=== PATIENT | female | born 1995 | race Caucasian/White ===

== ENCOUNTER 2020-05-24 14:03 | Emergency (ER) | payer OTHER ==
[~2020-05-24] VITALS: Ht 157.5 cm; Wt 94.3 kg
--- OUTSIDE RECORDS SUMMARY | ~2020-05-24 | XMS | Encounter Summary ---
Demographics + + + | Address | [address] | | | [place] [address] | + + + | Home Phone | | + + + | Preferred Language | Unknown | + + + | Marital Status | Single | + + + | Jewish Affiliation | LUT | + + + | Race | White | + + + | Ethnic Group | Not or | + + + Author + + + | Author | [facility] | + + + | Organization | [facility] | + + + | Address | Unknown | + + + | Phone | Unavailable | + + + Support + + + + + | Name | Relationship | Address | Phone | + + + + + | Cherry Headley | ECON | [address] | | | | | [place] | | | | | [address] | | + + + + + Care Team Providers + +------+ + | Care Area Director Name | Role | Phone | + +------+ + | Cornelius Jerry MD | PCP | | + +------+ + Reason for Visit + + + | Reason | Comments | + + + | Strabismus | | + + + Encounter Details +--------+---------+ + + + | Date | Type | Department | Care Team | Description | +--------+---------+ + + + | 10/02/ | Office | [facility] | [facility] | Hypertropia; | | 2010 | Visit | [facility] | [address] [facility] | Esotropia, | | | | at [facility] | [address] | unspecified | | | | [address] | [place] [address] | | | | | [facility] [place] [facility], | | | | | | 5th floor | | | | | | [place] [address] | | | | | | [phone] | | | +--------+---------+ + + + Social History + +-------+ +--------+------+ | Tobacco Use | Types | Packs/Day | Years | Date | | | | | Used | | + +-------+ +--------+------+ | Never Smoker | | | | | + +-------+ +--------+------+ + +---+---+---+ | Smokeless Tobacco: | | | | | Never Used | | | | + +---+---+---+ + + +---------+ + | Alcohol Use | Drinks/Week | oz/Week | Comments | + + +---------+ + | No | | | | + + +---------+ + + + + | Sex Assigned at | Date Recorded | | | | + + + | Not on file | | + + + + + + + | Job Start Date | Occupation | Industry | + + + + | Not on file | Not on file | Not on file | + + + + + + + + | Travel History | Travel Start | Travel End | + + + + + + | No recent travel history available. | + + documented as of this encounter Progress Vonda Schulz - 10/08/2011 3:18 PM PST Sensorimotor Examination: Petty Headley is a 16 year old female here for 1 day post op visit. Complains of vertical diplopia, worse in downgaze. No pain or nausea. Past Surgical History Procedure Date Strabismus surgery 10/01/2011 LMRs 4mm, DEE myotomy, RMRs 4mm on adjM Impression: 1. I day s/p BMR rec. With DEE myectomy with small to moderate overcorrection of the vertic al misalignment. 2. Stable acuity Plan: 1. Care directed by Dr. Karr. VONDA GAY CO COMT documented in this enc ounter Plan of Treatment Not on filedocumented as of this encounter Visit Diagnoses + + | Diagnosis | + + | Hypertropia | + + | Esotropia, unspecified | + + documented in this encounter"
--- OUTSIDE RECORDS SUMMARY | ~2020-05-24 | XMS | Encounter Summary ---
Demographics + + + | Address | [address] | | | [place] [address] | + + + | Home Phone | | + + + | Preferred Language | Unknown | + + + | Marital Status | Single | + + + | Synagogue Affiliation | LUT | + + + | Race | White | + + + | Ethnic Group | Not or | + + + Author + + + | Author | [facility] | + + + | Organization | [facility] | + + + | Address | Unknown | + + + | Phone | Unavailable | + + + Support + + + + + | Name | Relationship | Address | Phone | + + + + + | Cherry Headley | ECON | [address] | | | | | [place] | | | | | [address] | | + + + + + Care Team Providers + +------+ + | Care Fabric Worker Name | Role | Phone | + +------+ + | Cornelius Jerry MD | PCP | | + +------+ + Reason for Visit + + + | Reason | Comments | + + + | Strabismus Surgery | surgical documentation 10/01/2011 | + + + Encounter Details +--------+ + + + + | Date | Type | Department | Care Team | Description | +--------+ + + + + | 10/02/ | Documentati | [facility] | Pancho Rodgers MD | Strabismus Surgery | | 2010 | on | [facility] [address] | [address] | (surgical | | | | [address] [facility] | [address] | documentation | | | | [place], [address]th | [place], [place] | 10/01/2011) | | | | floor [place], [place] | [address] | | | | | [address] | [phone] | | | | | | | | +--------+ + + + + Social History + +-------+ [...] + + documented as of this encounter Plan of Treatment Not on filedocumented as of this encounter Visit Diagnoses Not on filedocumented in this encounter"
--- OUTSIDE RECORDS SUMMARY | ~2020-05-24 | XMS | Encounter Summary ---
Demographics + + + | Address | [address] | | | [place] [address] | + + + | Home Phone | | + + + | Preferred Language | Unknown | + + + | Marital Status | Single | + + + | Episcopal Affiliation | LUT | + + + | Race | White | + + + | Ethnic Group | Not or | + + + Author + + + | Author | [facility] | + + + | Organization | [facility] | + + + | Address | Unknown | + + + | Phone | Unavailable | + + + Support + + + + + | Name | Relationship | Address | Phone | + + + + + | Cherry Headley | ECON | [address] | | | | | [place] | | | | | [address] | | + + + + + Care Team Providers + +------+ + | Care Shaker Out Name | Role | Phone | + +------+ + | Cornelius Jerry MD | PCP | | + +------+ + Reason for Visit +---------+ + | Reason | Comments | +---------+ + | Post Op | 1 month post strab sx | +---------+ + Encounter Details +--------+---------+ + + + | Date | Type | Department | Care Team | Description | +--------+---------+ + + + | 11/10/ | Office | [facility] | Pancho Thakur MD | Hypertropia (Primary | | 2010 | Visit | [facility] [address] | [address] | Dx) | | | | [address] [facility] | [address] | | | | | [place], [facility] | [place], [place] | | | | | floor [place], [place] | [address] | | | | | [address] | [phone] | | | | | | | | +--------+---------+ + + + [...] documented as of this encounter Progress Notes Pancho Thakur MD - 11/10/2011 8:56 AM PST OPHTHALMOLOGY FOLLOW UP EXAMINATION: INTERVAL HISTORY: Petty Headley is a 16 y.o. female from [place] accompanied by Sami- speaking mother. Presents with 1 month post strab sx LMRs 4mm, DEE myotomy, RMRs 4mm on adj. Vision and alignment good per mother and patient. Petty c/o constant pain in OD of 4/10.Sh e notes there is a foreign body feeling when she blinks the right eye. No pain medication be ing taken. 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 EXAMINATION: Mental Status: Alert, age-appropriate behavior Current Correction: Type: Sphere Cylinder [place] Add Prism Right Eye Left Eye Comments: Stereo: Fly +, Animals 3/3, Circles 9/9 Visual acuity: Distance fixation: Method: Snellen - Linear Without Correction With Correction Pinhole cc Pinhole sc Isolated Right Eye 20/15 Left Eye 20/15 -2 Both Eyes VA Comments: [place]:Full both eyes Please see below in the assessment and plan for interpretation of the chief recordist sensorimot or exam. Pupils: No APD Right eye: round reactive to light PERRL Left eye: round reactive to light PERRL Patient dilated at with . IAZUL, performed, reviewed or revised the above interval history only, medications , allergies, as well as performed elements noted in the Base Ophthalmology Exam, such as vis ual acuity, pupils, EOMs and IOP and this was reviewed and modified by the attending physici an. Assessment 1. Excellent alignment 2. Adjustable suture tail is close to the limbus. No concerns , Has usual amount of inflam matory/healing change Plan 1. Offered to trim the suture. She felt it was not bothering her that much and preferred t o go with artificial tears as needed. 2. Recheck in one month I have reviewed and edited history and technical documentation and Scribe input, and perfor med all elements to above examination documentation PANCHO THAKUR MD documented in this en counter Plan of Treatment Not on filedocumented as of this encounter Visit Diagnoses + + | Diagnosis | + + | Hypertropia - Primary | + + documented in this encounter"
--- OUTSIDE RECORDS SUMMARY | ~2020-05-24 | XMS | Encounter Summary ---
Demographics + + + | Address | [address] | | | [place] [address] | + + + | Home Phone | | + + + | Preferred Language | Unknown | + + + | Marital Status | Single | + + + | Latter Day Affiliation | LUT | + + + | Race | White | + + + | Ethnic Group | Not or | + + + Author + + + | Author | [facility] | + + + | Organization | [facility] | + + + | Address | Unknown | + + + | Phone | Unavailable | + + + Support + + + + + | Name | Relationship | Address | Phone | + + + + + | Cherry eHadley | ECON | [address] | | | | | [place] | | | | | [address] | | + + + + + Care Team Providers + +------+ + | Care Shipping And Receiving Specialist Name | Role | Phone | + [...] Description | +--------+---------+ + + + | 11// | Office | [facility] | Vonda Gay | Alternating | | 2010 | Visit | [facility] | [address] | exotropia with V | | | | at [facility] | [address] | pattern; Inferior | | | | [address] | [place] [address] | oblique overaction | | | | [facility], | | | | | | 5th floor | | | | | | [place] [address] | | | | | | [phone] | | | +--------+---------+ + + + Social History + +-------+ +--------+------+ | Tobacco Use | Types | Packs/Day | Years | Date | | | | | Used | | + +-------+ +--------+------+ | Never Smoker | | | | | + +-------+ +--------+------+ + + +---------+ + | Alcohol Use | Drinks/Week | oz/Week | Comments | + + +---------+ + | Not Asked | | | | + + +---------+ [...] this encounter Progress Notes Vonda Gay - 10/03/2011 9:38 AM PST Sensorimotor Examination: INTERVAL HISTORY: Petty Headley is a 16 y.o. female from [place] accompanied by Bermudian- speaking mother. Here for surgical plan. No new complaints. Vision is fine. Does not wear gl asses. Strabismus surgery is scheduled for tomorrow. Last Appt: 01/31 Last DFE/CR: 01/31 No past medical history on file. Patient Active Problem List Diagnoses Exotropia, unspecified Hypertropia Hyperopia Alternating exotropia Past Surgical History Procedure Date Strabismus surgery 2000 both eyes to correct exotropia Meds Reviewed: Yes Allergies Reviewed: Yes Problem List Reviewed: Yes EXAMINATION: Mental Status: Alert, age-appropriate behavior Stereo: Fly +, Animals 01/23, Circles 08/01 Visual acuity: Distance fixation: Method: Snellen - Linear Without Correction With Correction Pinhole cc Pinhole sc Isolated Right Eye 20/15 Left Eye 20/20 Both Eyes VA Comments: Impression: 1. V-pattern exotropia 2. Nearly equal vision Plan: 1. Proceed with strabismus surgery as planned tomorrow with Dr. Karr. VONDA GAY CO COMT documented in this enc ounter Plan of Treatment Not on filedocumented as of this encounter Visit Diagnoses + + | Diagnosis | + + | Alternating exotropia with V pattern | + + | Inferior oblique overaction Esotropia, unspecified | + + documented in this encounter"
--- OUTSIDE RECORDS SUMMARY | ~2020-05-24 | XMS | Encounter Summary ---
Demographics + + + | Address | [address] | | | [place] [address] | + + + | Home Phone | | + + + | Preferred Language | Unknown | + + + | Marital Status | Single | + + + | Alevism Affiliation | LUT | + + + | Race | White | + + + | Ethnic Group | Not or | + + + Author + + + | Author | [facility] | + + + | Organization | [facility] | + + + | Address | Unknown | + + + | Phone | Unavailable | + + + Support + + + + + | Name | Relationship | Address | Phone | + + + + + | Cherry Headley | ECON | [address] | | | | | [place] | | | | | [address] | | + + + + + Care Team Providers + +------+ + | Care Barrel Lapper Name | Role | Phone | + +------+ + | Cornelius Jerry MD | PCP | | + +------+ + Reason for Visit + + + | Reason | Comments | + + + | Strabismus Surgery | need to dawson surgery with Dr. Rodgers | + + + Encounter Details +--------+ + + + + | Date | Type | Department | Care Team | Description | +--------+ + + + + | 06/12/ | Documentati | [facility] | Pancho Rodgers MD | Strabismus Surgery | | 2010 | on | Eye Clinic [address] | [address] | (need to dawson surgery | | | | [address] [facility] | [address] | with Dr. Rodgers ) | | | | [place], [facility] | [place], [place] | | | | | [place], [place] | [address] | | | | | [address] | [phone] | | | | | | | | +--------+ + + + + Social History + +-------+ +--------+------+ | Tobacco Use | Types | Packs/Day | Years | Date | | | | | Used | | + +-------+ +--------+------+ | Never Assessed | | | | | + +-------+ +--------+------+ + + + | Sex Assigned at [...]
--- OUTSIDE RECORDS SUMMARY | ~2020-05-24 | XMS | Encounter Summary ---
Demographics + + + | Address | [address] | | | [place] [address] | + + + | Home Phone | | + + + | Preferred Language | Unknown | + + + | Marital Status | Single | + + + | Jainism Affiliation | LUT | + + + | Race | White | + + + | Ethnic Group | Not or | + + + Author + + + | Author | [facility] | + + + | Organization | [facility] | + + + | Address | Unknown | + + + | Phone | Unavailable | + + + Support + + + + + | Name | Relationship | Address | Phone | + + + + + | Cherry Headley | ECON | [address] | | | | | [place] | | | | | [address] | | + + + + + Care Team Providers + +------+ + | Care Nursing Professor Name | Role | Phone | + [...] Hypertropia; | | 2010 | Visit | [facility] | [address] [facility] | Esotropia, | | | | at [facility] | [address] | unspecified | | | | [address] | [place] [address] | | | | | [facility], | | | | | | 5th floor | | | | | | [place] [address] | | | | | | [phone] | | | +--------+---------+ + + + [...]
--- OUTSIDE RECORDS SUMMARY | ~2020-05-24 | XMS | Clinical Summary ---
Demographics + + + | Address | [address] | | | [place] [address] | + + + | Home Phone | | + + + | Preferred Language | Unknown | + + + | Marital Status | Single | + + + | Restorationism Affiliation | LUT | + + + | Race | White | + + + | Ethnic Group | Not or | + + + Author + + + | Author | [facility] | + + + | Organization | [facility] | + + + | Address | Unknown | + + + | Phone | Unavailable | + + + Support + + + + + | Name | Relationship | Address | Phone | + + + + + | Jackelyn Cash | ECON | [address] | | | | | [place] | | | | | [address] | | + + + + + Care Team Providers + +------+ + | Care Gauge And Weigh Machine Adjuster Name | Role | Phone | + +------+ + | Cornelius Jerry MD | PCP | | + +------+ + Source Comments SHAE is fully live on both [facility] and [facility]Patient.[facility] Allergies No Known Allergies Medications No known medications Active Problems + + + | Problem | Noted Date | + + + | Esotropia | 10/08/2011 | + + + + + | Overview: ICD10 | + + + + + | Alternating exotropia with V pattern | 10/03/2011 | + + + | Inferior oblique overaction | 10/03/2011 | + + + | Exotropia | 01/24/2011 | + + + + + | Overview: ICD10 | + + + + + | Hypertropia | 01/24/2011 | + + + | Hyperopia | 01/24/2011 | + + + | Alternating exotropia | 01/24/2011 | + + + Social History + +-------+ [...] recent travel history available. | + + Last Filed Vital Signs + + + + + | Vital Sign | Reading | Time Taken | Comments | + + + + + | Blood Pressure | 105/63 | 10/01/2011 3:38 PM | | | | | PST | | + + + + + | Pulse | 92 | 10/01/2011 4:00 PM | | | | | PST | | + + + + + | Temperature | 36.6 C (97.9 F) | 10/01/2011 3:38 PM | | | | | PST | | + + + + + | Respiratory Rate | 20 | 10/01/2011 4:00 PM | | | | | PST | | + + + + + | Oxygen Saturation | 100% | 10/01/2011 4:00 PM | | | | | PST | | + + + + + | Inhaled Oxygen | - | - | | | Concentration | | | | + + + + + | Weight | 65.3 kg (144 lb) | 10/01/2011 11:19 AM | | | | | PST | | + + + + + | Height | 160 cm (5' 3") | 10/01/2011 11:19 AM | | | | | PST | | + + + + + | Body Mass Index | 25.51 | 10/01/2011 11:19 AM | | | | | PST | | + + + + + Plan of Treatment + + + + + | Health Maintenance | Due Date | Last Done | Comments | + + + + + | Influenza (Flu) | | | | | vaccination (#1) | 9 | | | + + + + + | Pneumococcal | Aged Out | | No longer eligible | | vaccination | | | based on patient's | | | | | age to complete this | | | | | topic | + + + + + Results Not on filefrom Last 3 Months Insurance + +--------+ +--------+ + +------+ | Payer | Benefi | Subscriber | Effect | Phone | Address | Type | | | t Plan | ID | dana | | | | | | / | | Dates | | | | | | Group | | | | | | + +--------+ +--------+ + +------+ | [employer] | MODA | xxxxxxxxx | | [phone] | [address] | PPO | | | [employer] | | [address] | [phone] | | | | [place] | | esent | | [place], | | | | [place] | | | | [place] [address] | | + +--------+ +--------+ + +------+ + +--------+ +--------+ + + | Guarantor Name | Accoun | Relation to | Date | Phone | Billing Address | | | t Type | Patient | of | | | | | | | | | | + +--------+ +--------+ + + | JACKELYN CASH | Person | Parent | [birth year] | [address] | | | al/Fam | | 1971 | [phone] | [place] | | | [place] | | | [address] (Home) | [address] | + +--------+ +--------+ + +
--- OUTSIDE RECORDS SUMMARY | ~2020-05-24 | XMS | Clinical Summary ---
Demographics + + + | Address | [address] | | | [place] [address] | + + + | Home Phone | | + + + | Preferred Language | Unknown | + + + | Marital Status | Single | + + + | Latter-Day Affiliation | LUT | + + + | Race | White | + + + | Ethnic Group | Not or | + + + Author + + + | Author | [facility] | + + + | Organization | [facility] | + + + | Address | Unknown | + + + | Phone | Unavailable | + + + Support + + + + + | Name | Relationship | Address | Phone | + + + + + | Jackelyn Cash | ECON | [address] | | | | | [place] | | | | | [address] | | + + + + + Care Team Providers + +------+ + | Care Production Hardener Name | Role | Phone | + +------+ + | Cornelius Jerry MD | PCP | | + +------+ + Source Comments SHAE is fully live on both [facility] and [facility] InPatient.[facility] Allergies No Known Allergies Medications No known [...] OE[employer] | MODA | xxxxxxxxx | | [phone] | [address] | PPO | | | [place] | | [address] | [phone] | | | | [place] | | esent | | [place], | | | | [place] | | | | [place] [address] | | + +--------+ +--------+ + +------+ [...] [place] | | | [address] (Home) | [address] | + +--------+ +--------+ + +
--- OUTSIDE RECORDS SUMMARY | ~2020-05-24 | XMS | Encounter Summary ---
Demographics + + + | Address | [address] | | | [place] [address] | + + + | Home Phone | | + + + | Preferred Language | Unknown | + + + | Marital Status | Single | + + + | Zoroastrian Affiliation | LUT | + + + | Race | White | + + + | Ethnic Group | Not or | + + + Author + + + | Author | [facility] | + + + | Organization | [facility] | + + + | Address | Unknown | + + + | Phone | Unavailable | + + + Support + + + + + | Name | Relationship | Address | Phone | + + + + + | Cherry Headley | ECON | [address] | | | | | [place] | | | | | [address] | | + + + + + Care Team Providers + +------+ + | Care Residential Roofer Helper Name | Role | Phone | + +------+ + | Cornelius Jerry MD | PCP | | + +------+ + Reason for Visit + + + | Reason | Comments | + + + | Follow-up visit | post op | + + + | Strabismus | | + + + Encounter Details +--------+---------+ + + + | Date | Type | Department | Care Team | Description | +--------+---------+ + + + | 01/05/ | Office | [facility] | GottliebMarlenDeedee | Convergence | | 2011 | Visit | [facility] | | insufficiency or | | | | at [facility] | | palsy in binocular | | | | [address] | | eye movement; | | | | [facility], | | Alternating | | | | 5th floor | | exotropia with V | | | | [place] [address] | | pattern; Diplopia | | | | [phone] | | | +--------+---------+ + + + [...] this encounter Progress Notes Deedee Gottlieb - 01/05/2012 12:30 PM PSTFormatting of this note might be different from the o valenciainal. SENSORY MOTOR EXAM: Reason For Visit: Follow-up visit - intermittent exotropia INTERVAL HISTORY: Petty Headley is a 16 y.o. female from [place] accompanied by Lithuanian- speaking mother. Patient is 3 months post surgery for intermittent exotropia. 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 Esotropia, unspecified Past Surgical History Procedure Date Strabismus surgery 2000 both eyes to correct exotropia Strabismus surgery 10/01/2011 LMRs 4mm, DEE myotomy, RMRs 4mm on adjM Meds Reviewed: Yes Allergies Reviewed: Yes Problem List Reviewed: Yes EXAMINATION: Mental Status: Alert, age-appropriate behavior No glasses Stereo: Fly +, Animals 3/3, Circles 9/9 Visual acuity: Distance fixation: Method: Snellen linear Without Correction With Correction Pinhole cc Pinhole sc Isolated Right Eye 20/20 Left Eye 20/20 Both Eyes VA Comments: Near: at 14 inches Method: Narrable near card Without Correction With Correction Right Eye J1 Left Eye J1 Both Eyes States she is having no problem reading and passed the [place] state assessment test Motility Exam: Adaptive abnormal head posture: some chin down and turn to left Distance Alignment: sc 10-12 X-Xt 4 E 5 X 3 RH 7 ET 4 RHT 6 E-ET 1 RH Near: sc Primary: 6 X' Downgaze: NPC: OS diverges at 12 cm poorly maintained. Head Tilt Test: Rt: 0 3 RH Lt: ortho Ocular Ductions and Versions: V pattern RE LE 0 0 0 0 0 0 0 0 0 0 0 0 0 0 0 0 Pupils: No APD Right eye: round reactive to light PERRL Left eye: round reactive to light PERRL Intraocular Pressure: Method: Right eye: Left eye: Assessment 1. Convergence insufficiency still persists although control is pretty good at distance and near 2. Result of surgery will be compromised with extra school work unless she practises at [facility] 3. Some diplopia in left and down gaze intermittently due to incomitance. Plan 1. Suggested computer orthoptics if she does not want to do the push ups as directed 2. Mom will consider this. Care directed by Dr Rodgers. Vinayak Cain. 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
--- OUTSIDE RECORDS SUMMARY | ~2020-05-24 | XMS | Encounter Summary ---
Demographics + + + | Address | [address] | | | [place] [address] | + + + | Home Phone | | + + + | Preferred Language | Unknown | + + + | Marital Status | Single | + + + | Yarsani Affiliation | LUT | + + + [...] [place] | | | | | [address] | | + + + + + Care Team Providers + +------+ + | Care Shift Lab Technician Name | Role | Phone | [...] Convergence | | 2011 | Visit | [facility] | | insufficiency or | | | | at [facility] | | palsy in binocular | | | | [address] | | eye movement; | | | | [facility], | | Alternating | | | | 5th floor | | exotropia with V | | | | [place] [address] | | pattern; Diplopia | | | | [phone] | | | +--------+---------+ + + + [...] Headley is a 16 y.o. female from [place] accompanied by Sami- speaking mother. Patient is 3 months post [...] VA Comments: Near: at 14 inches Method: Oxxy near card Without Correction With Correction Right Eye J1 Left Eye J1 Both Eyes States she is having no problem reading and passed the [place] state assessment test Motility Exam: Adaptive abnormal [...] extra school work unless she practises at [facility] 3. Some diplopia in left and [...]
--- OUTSIDE RECORDS SUMMARY | ~2020-05-24 | XMS | Encounter Summary ---
Demographics + + + | Address | [address] | | | [place] [address] | + + + | Home Phone | | + + + | Preferred Language | Unknown | + + + | Marital Status | Single | + + + | Jew Affiliation | LUT | + + + | Race | White | + + + | Ethnic Group | Not or | + + + Author + + + | Author | [facility] | + + + | Organization | [facility] | + + + | Address | Unknown | + + + | Phone | Unavailable | + + + Support + + + + + | Name | Relationship | Address | Phone | + + + + + | Cherry Headley | ECON | [address] | | | | | [place] | | | | | [address] | | + + + + + Care Team Providers + +------+ + | Care Wet End Supervisor Name | Role | Phone | + [...] + + | 11// | Office | [facility] | Vonda Gay | Alternating | | 2010 | Visit | [facility] | [address] | exotropia with V | | | | at [facility] | [address] | pattern; Inferior | | | | [address] | [place] [address] | oblique overaction | | | | [facility], | | | | | | 5th floor | | | | | | [place] [address] | | | | | | [phone] | | | +--------+---------+ + + + [...] Headley is a 16 y.o. female from [place] accompanied by Belgian- speaking mother. Here for surgical plan. No [...]
--- OUTSIDE RECORDS SUMMARY | ~2020-05-24 | XMS | Encounter Summary ---
Demographics + + + | Address | [address] | | | [place] [address] | + + + | Home Phone | | + + + | Preferred Language | Unknown | + + + | Marital Status | Single | + + + | Buddhist Affiliation | LUT | + + + | Race | White | + + + | Ethnic Group | Not or | + + + Author + + + | Author | [facility] | + + + | Organization | [facility] | + + + | Address | Unknown | + + + | Phone | Unavailable | + + + Support + + + + + | Name | Relationship | Address | Phone | + + + + + | Cherry Headley | ECON | [address] | | | | | [place] | | | | | [address] | | + + + + + Care Team Providers + +------+ + | Care Regasification Plant Operator Name | Role | Phone | + [...] Description | +--------+---------+ + + + | 03/03/ | Office | [facility] | Deedee Gottlieb | Alternating | | 2010 | Visit | [facility] | | exotropia with V | | | | at [facility] | | pattern; Hypertropia | | | | [address] | | | | | | [facility] [facility], | | | | | | 5th floor | | | | | | [place] [address] | | | | | | [phone] | | | +--------+---------+ + + + [...] this encounter Progress Notes Deedee Gottlieb - 01/24/2011 10:19 AM PSTFormatting of this note might be different from the o jose. COMPREHENSIVE OPHTHALMOLOGY EXAM: HISTORY OF PRESENT PROBLEM: Petty Headley is a 15 y.o. female from [place] accompanied b y mother. Here for exotropia consult. History of surgery aged 6 years at [facility] for exotropia. Started weari ng prism glasses about the aged of 8 years. Had patching and some exercises. Per mother we ars glasses very little recently Deviation has gradually increased with time and she wants to know if she can have further s urgery. . PAIN: pain PAST OCULAR HISTORY: strabismus surgery aged 6 PAST MEDICAL HISTORY: none FAMILY HISTORY OF EYE DISEASE: grandfather with XT EXAMINATION: Mental Status: Alert, age-appropriate behavior Current Correction: Sphere Cylinder [place] Add Prism Right Eye +0.50 +0.25 017 4 in 1.5 dn Left Eye +0.25 +0.25 165 4 in 1.5 up Comments: Stereo: Fly +, Animals 2/3, Circles 2/9 Visual acuity: Distance fixation: Method: Snellen linear Without Correction With Correction Pinhole cc Pinhole sc Isolated Right Eye 20/30 -1 20/30 20 Left Eye 20/30 20/30 Both Eyes VA Comments: Near: at 14 inches Method: Blink Logic near card Without Correction With Correction Right Eye J3 Left Eye J3 Both Eyes Confrontation Woods:Full both eyes Motility Exam: Adaptive abnormal head posture: none Distance Alignment: sd short room 28 XT 3 RHT Builds to 15 XT 7 RHT Builds to 18 XT 8 RHT 16 XT 10 RHT 12 XT 6 RHT Near: sd cc Primary: To 10 XT' 2 RHT' Downgaze: NPC: Not binocular in fact very poor. Diverges at 22 cms. Accommodation: BEO: 14 cms RE/LE: 8-10 cms Tried + 1.00 DS did not like. Head Tilt Test: Rt: 16 XT 10 RHT Lt: 12-14 XT 5 RHT Ocular Ductions and Versions: Splay in elevation RE LE 0 0 0 0 0 0 0 - 0 0 0 0 0 0 0 0 Post op diplopia test: No diplopia noted with deviation corrected, over corrected or under corrected Assessment 1. Residual alternating exotropia and right hypertropia 2. Hyperopia Desires further surgery Care directed by Dr Rodgers. Vinayak Cain. documented in this encounter Plan of Treatment Not on filedocumented as of this encounter Visit Diagnoses + + | Diagnosis | + + | Alternating exotropia with V pattern | + + | Hypertropia | + + documented in this encounter"
--- OUTSIDE RECORDS SUMMARY | ~2020-05-24 | XMS | Encounter Summary ---
Demographics + + + | Address | [address] | | | [place] [address] | + + + | Home Phone | | + + + | Preferred Language | Unknown | + + + | Marital Status | Single | + + + | Oriental Orthodox Affiliation | LUT | + + + | Race | White | + + + | Ethnic Group | Not or | + + + Author + + + | Author | [facility] | + + + | Organization | [facility] | + + + | Address | Unknown | + + + | Phone | Unavailable | + + + Support + + + + + | Name | Relationship | Address | Phone | + + + + + | Cherry Headley | ECON | [address] | | | | | [place] | | | | | [address] | | + + + + + Care Team Providers + +------+ + | Care Electrical And Instrumentation Manager Name | Role | Phone | + +------+ + | Cornelius Jerry MD | PCP | | + +------+ + Encounter Details +--------+---------+ + + + | Date | Type | Department | Care Team | Description | +--------+---------+ + + + | 09/30/ | Office | [facility] | Pancho Thakur MD | Alternating | | 2010 | Visit | [facility] Clinic [address] | [address] | exotropia with V | | | | [address] [facility] | [address] | pattern (Primary | | | | [place], [address]th | [place], [place] | Dx); Exotropia, | | | | [place] | [address] | unspecified; | | | | [phone] | [phone] | Hypertropia; | | | | | | Inferior oblique | | | | | | overaction | +--------+---------+ + + + Social History [...] encounter Progress Notes Pancho Thakur MD - 10/02/2011 11:58 AM PST OPHTHALMOLOGY FOLLOW UP EXAMINATION: INTERVAL HISTORY: Petty Headley is a 16 y.o. female from [place] accompanied by Bangladeshi- speaking mother. Here for surgical plan. No new complaints. Vision is fine. Does not wea r glasses. Strabismus surgery is scheduled for tomorrow. Last Appt: 01/31 Last DFE/CR: 01/31 Past Medical History Diagnosis Date Unspecified disorder of eye movements Patient Active Problem List Diagnoses Exotropia, unspecified Hypertropia Hyperopia Alternating exotropia Past Surgical History Procedure Date Strabismus surgery 2000 both eyes to correct exotropia Meds Reviewed: Yes Allergies Reviewed: Yes Problem List Reviewed: Yes EXAMINATION: Mental Status: Alert, age-appropriate behavior Stereo: Fly +, Animals 3/3, Circles 9/9 Visual acuity: Distance fixation: Method: Snellen - Linear Without Correction With Correction Pinhole cc Pinhole sc Isolated Right Eye 20/15 Left Eye 20/20 Both Eyes VA Comments: Pupils: No APD Right eye: round reactive to light Left eye: round reactive to light Intraocular Pressure: Method: Right eye: Left eye: Patient dilated at with . JANNIE Murguia COMT, performed, reviewed or revised the above interval history onl y, medications, allergies, as well as performed elements noted in the Base Ophthalmology Exa m, such as visual acuity, pupils, EOMs and IOP and this was reviewed and modified by the att ending physician. Assessment 1. Residual exotropia, Status post right and left lateral rectus recession 7.5 mm both eye s 2. 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 Bilateral splay. I do not see left inferior oblique over action Plan 1. Do right and left media rectus resection for approximately 18 to 20 exotropia 2. Do right inferior oblique weakening 3. All questions answered I have reviewed and edited history and technical documentation and Scribe input, and perfor med all elements to above examination documentation PANCHO THAKUR MD documented in this enc ounter Plan of Treatment Not on filedocumented as of this encounter Visit Diagnoses + + | Diagnosis | + + | Alternating exotropia with V pattern - Primary | + + | Exotropia, unspecified | + + | Hypertropia | + + | Inferior oblique overaction Esotropia, unspecified | + + documented in this encounter"
--- OUTSIDE RECORDS SUMMARY | ~2020-05-24 | XMS | Encounter Summary ---
Demographics + + + | Address | [address] | | | [place] [address] | + + + | Home Phone | | + + + | Preferred Language | Unknown | + + + | Marital Status | Single | + + + | Yazidi Affiliation | LUT | + + + | Race | White | + + + | Ethnic Group | Not or | + + + Author + + + | Author | [facility] | + + + | Organization | [facility] | + + + | Address | Unknown | + + + | Phone | Unavailable | + + + Support + + + + + | Name | Relationship | Address | Phone | + + + + + | Cherry Headley | ECON | [address] | | | | | [place] | | | | | [address] | | + + + + + Care Team Providers + +------+ + | Care Fruit Packer Name | Role | Phone | + +------+ + | Cornelius Jerry MD | PCP | | + +------+ + Encounter Details +--------+---------+ + + + | Date | Type | Department | Care Team | Description | +--------+---------+ + + + | 10/02/ | Office | [facility] | Pancho Thakur MD | Alternating | | 2010 | Visit | [facility] Clinic [address] | [address] | exotropia with V | | | | [address] [facility] | [address] | pattern (Primary | | | | [place], [address] | [place], [place] | Dx); Exotropia, | | | | [place] | [address] | unspecified; | | | | [phone] | [phone] | Hypertropia; | | | | | | Hyperopia; | | | | | | Alternating | | | | | | exotropia; Inferior | | | | | | oblique overaction | +--------+---------+ + + + Social [...] Progress Notes Pancho Thakur MD - 10/02/2011 11:56 AM PST PEDIATRIC OPHTHALMOLOGY 1 day POST OP VISIT Petty Headley is a 16 year old female here for 1 day post op visit. Complains of vertical diplopia, worse in downgaze. No pain or nausea. Procedure: Surgery Date: 10/01/11 Current Outpatient Prescriptions on File Prior to Visit Medication Sig Dispense Refill HYDROcodone-acetaminophen 5-500 mg Oral Tablet Take 1 Tab by mouth every six hours as n eeded for moderate pain or severe pain. Not to exceed 6 tablets per any 24 hour period. (Not to exceed 3250 mg of acetaminophen from all products per 24 hour period.) 20 Tab 0 gvusayas-lnosucmsl-hznuelgczqimp (MAXITROL) 3.5-10,000-0.1 mg-unit/g-% Ophthalmic Ointm ent Instill 0.5 Inches into both eyes two times daily for 10 days. Label ONLY - [facility] to label bottle for outpatient dispensing 3.5 g 0 Pain:No Pain (0/10) PO intake adequate with no nausea. Patient complains of continuous vertical diplopia. EXAM: Visual Acuity: Visual acuity, distance fixation: Method: Snellen linear Without Correction With Correction Pinhole Isolated Right Eye 20/15 Not tested Not tested Left Eye 20/20 Not tested Not tested Both Eyes Not tested Not tested Not tested Impression: 1) Improved . Good range. Small esotropia and right hypertropia, much improved. Confuse with chin down 2) No signs of infection Plan: Tied down without difficulty Continue postop medications as directed. Avoid water in eyes for two weeks. Call for increa sing pain, swelling, redness, or decreased vision. Continue glasses unless directed otherwise. Follow up in 1 months Work on single binocular vision. Expect slight drift out Continue Maxitrol for 10 days I have reviewed and edited history and [...] + | Hypertropia | + + | Hyperopia Hypermetropia | + + | Alternating exotropia | + + | Inferior oblique overaction Esotropia, unspecified | + + documented in this encounter"
--- OUTSIDE RECORDS SUMMARY | ~2020-05-24 | XMS | Encounter Summary ---
Demographics + + + | Address | [address] | | | [place] [address] | + + + | Home Phone [...] Author + + + | Author | [facility] | + + + | Organization | [facility] | + + + | Address | Unknown | + + + | Phone | Unavailable | + + + Support + + + + + | Name | Relationship | Address | Phone | + + + + + | Cherry Headley | ECON | [address] | | | | | [place] | | | | | [address] | | + + + + + Care Team Providers + +------+ + | Care Manager Marketing Communication Name | Role | Phone | + +------+ + | Cornelius Jerry MD | PCP | | + +------+ + Encounter Details +--------+---------+ + + + | Date | Type | Department | Care Team | Description | +--------+---------+ + + + | 01/23/ | Office | [facility] | Pancho Thakur MD | Alternating | | 2010 | Visit | [facility] Clinic [address] | [address] | exotropia (Primary | | | | [address] [facility] | [address] | Dx); Hyperopia; | | | | [place], [address] | [place], [place] | Hypertropia; | | | | [place] | [address] | Exotropia, | | | | [address] | [phone] | unspecified | | | | | | | [...] encounter Progress Notes Pancho Thakur MD - 01/24/2011 8:23 AM [facility] COMPREHENSIVE OPHTHALMOLOGY EXAM: REASON FOR VISIT: Petty Headley is a 15 y.o. female here for exotropia consult HISTORY OF PRESENT PROBLEM: surgery aged 6 years old in [facility] for XT. Started wearing prism glasses after surgery age 8 or so. BARCLAY's daily diplopia once in awhile PAST OCULAR HISTORY: also had patching and some exercises PAST MEDICAL HISTORY: good health FAMILY HISTORY OF EYE DISEASE: father with XT I, Wallace Jeb Mcneal, am functioning as a scribe for Dr Thakur. IMPRESSION: 1. Exotropia status post prior surgery in [place] 2 Right hypertropia PLAN: 1. Consider two horizontal muscles possibly on adjustable. Final amount depended on preope rative measurements. 2 Obtain old records from prior surgery 3 The risks of surgery including but not limited to loss of vision, diplopia, infection, n eed for reoperation and anesthesia risk were discussed. All questions were answered. I have reviewed and edited history and technical documentation and Scribe input, and perfor med all elements to above examination documentation PANCHO THAKUR MD documented in this en counter Plan of Treatment Not on filedocumented as of this encounter Procedures + +--------+ + + + | Procedure Name | Priori | Date/Time | Associated Diagnosis | Comments | | | ty | | | | + +--------+ + + + | PA SPECIAL EYE | Routin | 01/24/2011 | Hyperopia | | | EVAL,SENSORIMOTOR | e | 10:15 AM | | | | | | PST | | | + +--------+ + + + | PA REFRACTION - C | Routin | 01/24/2011 | Hypertropia | | | (CAMPUS) | e | 10:15 AM | Exotropia, | | | | | PST | unspecified | | + +--------+ + + + documented in this encounter Visit Diagnoses + + | Diagnosis | + + | Alternating exotropia - Primary | + + | Hyperopia Hypermetropia | + + | Hypertropia | + + | Exotropia, unspecified | + + documented in this encounter"
--- OUTSIDE RECORDS SUMMARY | ~2020-05-24 | XMS | Encounter Summary ---
Demographics + + + | Address | [address] | | | [place] [address] | + + + | Home Phone | | + + + | Preferred Language | Unknown | + + + | Marital Status | Single | + + + | Druze Affiliation | LUT | + + + [...] [place] | | | | | [address] | | + + + + + Care Team Providers + +------+ + | Care Yarn Skeins Examiner Name | Role | Phone | + +------+ + | Cornelius Jerry MD | PCP | | + +------+ + Encounter Details +--------+---------+ + + + | Date | Type | Department | Care Team | Description | +--------+---------+ + + + | 01/23/ | Office | [facility] | Pancho Thakur MD | Alternating | | 2010 | Visit | Eye Clinic [address] | [address] | exotropia (Primary | | | | [address] [address] [facility] | [address] | Dx); Hyperopia; | | | | [place], [address] | [place], [place] | Hypertropia; | | | | [place] | [address] | Exotropia, | | | | [address] | [phone] | unspecified | | | | | [...] Pancho Thakur MD - 01/24/2011 8:23 AM [facility] COMPREHENSIVE OPHTHALMOLOGY EXAM: REASON FOR VISIT: Petty Headley is a 15 y.o. female here for exotropia consult HISTORY OF PRESENT PROBLEM: surgery aged 6 years old in [facility] for XT. Started wearing prism glasses after surgery age 8 or so. BARCLAY's daily diplopia once in awhile PAST OCULAR HISTORY: also had patching and some exercises PAST MEDICAL HISTORY: good health FAMILY HISTORY OF EYE DISEASE: father with XT I, Wallace Jeb Mcneal, am functioning as a scribe for Dr Thakur. IMPRESSION: 1. Exotropia status post prior surgery in [place] 2 Right hypertropia PLAN: 1. Consider two [...] | + +--------+ + + + | [place] SPECIAL EYE | Routin | 01/24/2011 | Hyperopia | | | EVAL,SENSORIMOTOR | e | 10:15 AM | | | | | | PST | | | + +--------+ + + + | NC REFRACTION - C | Routin | 01/24/2011 [...]
--- OUTSIDE RECORDS SUMMARY | ~2020-05-24 | XMS | Encounter Summary ---
Demographics + + + | Address | [address] | | | [place] [address] | + + + | Home Phone | | + + + | Preferred Language | Unknown | + + + | Marital Status | Single | + + + | Sabianism Affiliation | LUT | + + + | Race | White | + + + | Ethnic Group | Not or | + + + Author + + + | Author | [facility] | + + + | Organization | [facility] | + + + | Address | Unknown | + + + | Phone | Unavailable | + + + Support + + + + + | Name | Relationship | Address | Phone | + + + + + | Cherry Headley | ECON | [address] | | | | | [place] | | | | | [address] | | + + + + + Care Team Providers + +------+ + | Care Filler Blender Name | Role | Phone | + [...] + + | 11/10/ | Office | [facility] | Pancho Thakur MD | Hypertropia (Primary | | 2010 | Visit | [facility] Clinic [address] | [address] | Dx) | | | | [place] [address] [facility] | [address] | | | | | [place], [facility] | [place], [place] | | | | | [place] | [address] | | | | | [address] | [phone] | | | | | | | [...] Headley is a 16 y.o. female from [place] accompanied by Sinhala- speaking mother. Presents with 1 month post [...] age-appropriate behavior Current Correction: Type: Sphere Cylinder [place] Add Prism Right Eye Left Eye Comments: Stereo: Fly +, Animals 3/3, Circles 9/9 Visual acuity: Distance fixation: Method: Snellen - Linear Without Correction With Correction Pinhole cc Pinhole sc Isolated Right Eye 20/15 Left Eye 20/15 -2 Both Eyes VA Comments: Confrontation Woods:Full both eyes Please see below in the assessment and plan for interpretation of the wheat grower sensorimot or exam. Pupils: No APD Right [...]
--- OUTSIDE RECORDS SUMMARY | ~2020-05-24 | XMS | Encounter Summary ---
Demographics + + + | Address | [address] | | | [place] [address] | + + + | Home Phone [...] Author + + + | Author | [facility] | + + + | Organization | [facility] | + + + | Address | Unknown | + + + | Phone | Unavailable | + + + Support + + + + + | Name | Relationship | Address | Phone | + + + + + | Cherry Headley | ECON | [address] | | | | | [place] | | | | | [address] | | + + + + + Care Team Providers + +------+ + | Care Loan Consultant Name | Role | Phone | + +------+ + | Cornelius Jerry MD | PCP | | + +------+ + Encounter Details +--------+---------+ + + + | Date | Type | Department | Care Team | Description | +--------+---------+ + + + | 10/02/ | Office | [facility] | Pancho Thakur MD | Alternating | | 2010 | Visit | Eye Clinic [address] | [address] | exotropia with V | | | | [place] [facility] | [address] | pattern (Primary | | | | [place], [address] | [place], [place] | Dx); Exotropia, | | | | [place] | [address] | unspecified; | | | | [phone] | [phone] | Hypertropia; | | | | | [...] per 24 hour period.) 20 Tab 0 qwrotqtp-yqpvexiji-ciyiyhksyijdt (MAXITROL) 3.5-10,000-0.1 mg-unit/g-% Ophthalmic Ointm ent Instill 0.5 Inches into both eyes two times daily for 10 days. Label ONLY - [facility] to label bottle for outpatient dispensing [...]
--- OUTSIDE RECORDS SUMMARY | ~2020-05-24 | XMS | Encounter Summary ---
Demographics + + + | Address | [address] | | | [place] [address] | + + + | Home Phone | | + + + | Preferred Language | Unknown | + + + | Marital Status | Single | + + + | Scientologist Affiliation | LUT | + + + [...] [place] | | | | | [address] | | + + + + + Care Team Providers + +------+ + | Care Raise Miner Name | Role | Phone | + [...] + + | 10/01/ | Hospital | [facility] | Pancho Rodgers MD | | | 2010 | Encounter | STAY [facility] | [facility] | | | | | Dr [facility] | [address] | | | | | [address] | [place], [place] | | | | | [place], [place] | [address] | | | | | [address] | [phone] | | | | | | | [...] + documented in this encounter Discharge Instructions Rocío Stephen RN - 10/01/2011[facility] after Eye Muscle Surgery [...] | 0 | 10/01/20 | | | ywysklmh-csashvfom-p | into both eyes two | | | 11 | 1 | | examethasone | times daily for 10 | | | | | | (MAXITROL) | days. Label ONLY - | | | | | | 3.5-10,000-0.1 | [facility] [place] | | | | | | mg-unit/g-% [...] + | Transcriptions | + + | Other, Faculty - 10/05/2011 2:14 PM PST | [...] + | Transcriptions | + + | Other, Faculty - 10/01/2011 3:04 PM PST | [...]
--- OUTSIDE RECORDS SUMMARY | ~2020-05-24 | XMS | Encounter Summary ---
Demographics + + + | Address | [address] | | | [place] [address] | + + + | Home Phone [...] + + + | Author | [facility] | + + + | Organization | [facility] | + + + | Address | Unknown | + + + | Phone | Unavailable | + + + Support + + + + + | Name | Relationship | Address | Phone | + + + + + | Cherry Headley | ECON | [address] | | | | | [place] | | | | | [address] | | + + + + + Care Team Providers + +------+ + | Care Health And Safety Technician Name | Role | Phone | + +------+ + | Cornelius Jerry MD | PCP | | + +------+ + Reason for Visit + + + | Reason | Comments | + + + | Follow-up visit | intermittent exotropia | + + + Encounter Details +--------+---------+ + + + | Date | Type | Department | Care Team | Description | +--------+---------+ + + + | 01/05/ | Office | [facility] | Pancho Thakur MD | Exophoria (Primary | | 2011 | Visit | [facility] [address] | [address] | Dx) | | | | [address] [facility] | [address] | | | | | [place], [facility] | [place], [place] | | | | | floor [place], [place] | [address] | | | | | [address] | [phone] | | | | | | | [...] encounter Progress Notes Pancho Thakur MD - 01/06/2012 7:48 AM PST OPHTHALMOLOGY FOLLOW UP EXAMINATION: Reason For Visit: Follow-up visit - intermittent exotropia INTERVAL HISTORY: Petty Headley is a 16 y.o. female from [place] accompanied by Argentine- speaking mother. Patient is 3 months post [...] VA Comments: Near: at 14 inches Method: Urgent.ly near card Without Correction With Correction Right Eye J1 Left Eye J1 Both Eyes States she is having no problem reading and passed the [facility] assessment test Pupils: No APD Right eye: round reactive to light PERRL Left eye: round reactive to light PERRL Intraocular Pressure: Method: Right eye: Left eye: Patient dilated at with . ISUJEY, performed, reviewed or revised the above interval history only, medications , allergies, as well as performed elements noted in the Base Ophthalmology Exam, such as vis ual acuity, pupils, EOMs and IOP and this was reviewed and modified by the attending physici an. Assessment 1. Good alignment small exophoria/hyper phoria Plan 1. Recheck in 3 to 6 months 2. Discussed convergence exercises I have reviewed and edited history and technical documentation and Scribe input, and perfor med all elements to above examination documentation PANCHO TH[facility]UR [facility] Not on filedocumented as of this encounter Visit Diagnoses + + | Diagnosis | + + | Exophoria - Primary | + + documented in this encounter"
--- OUTSIDE RECORDS SUMMARY | ~2020-05-24 | XMS | Encounter Summary ---
Demographics + + + | Address | [address] | | | [place] [address] | + + + | Home Phone | | + + + | Preferred Language | Unknown | + + + | Marital Status | Single | + + + | Taoism Affiliation | LUT | + + + [...] [place] | | | | | [address] | | + + + + + Care Team Providers + +------+ + | Care Seed Core Operator Name | Role | Phone | [...] + + | 10/01/ | Hospital | [facility] | Pancho Rodgers MD | | | 2010 | Encounter | STAY [address] [facility] | [facility] | | | | | Dr Emiliano Heck | [address] | | | | | Nitin Sauceda | [place], [place] | | | | | [place], [place] | [address] | | | | | [address] | [phone] | | | | | | | [...] | 0 | 10/01/20 | | | jlflzaxk-xyblxsiiv-e | into both eyes two | | | 11 | 1 | | examethasone | times daily for 10 | | | | | | (MAXITROL) | days. Label ONLY - | | | | | | 3.5-10,000-0.1 | [facility] | | | | | | mg-unit/g-% [...]
--- OUTSIDE RECORDS SUMMARY | ~2020-05-24 | XMS | Encounter Summary ---
Demographics + + + | Address | [address] | | | [place] [address] | + + + | Home Phone | | + + + | Preferred Language | Unknown | + + + | Marital Status | Single | + + + | Nondenominational Affiliation | LUT | + + + | Race | White | + + + | Ethnic Group | Not or | + + + Author + + + | Author | [facility] | + + + | Organization | [facility] | + + + | Address | Unknown | + + + | Phone | Unavailable | + + + Support + + + + + | Name | Relationship | Address | Phone | + + + + + | Cherry Headley | ECON | [address] | | | | | [place] | | | | | [address] | | + + + + + Care Team Providers + +------+ + | Care Supervisor Felling Bucking Name | Role | Phone | + +------+ + | Cornelius Jerry MD | PCP | | + +------+ + Encounter Details +--------+ + + + + | Date | Type | Department | Care Team | Description | +--------+ + + + + | 07/15/ | Documentati | [facility] | Pancho Rodgers MD | | | 2010 | on | Eye Clinic [address] | [address] | | | | | [address] [facility] | [address] | | | | | [place], [address] | [place], [place] | | | | | floor [place], [place] | [address] | | | | | [phone] | [phone] | | | | | | | [...]
--- OUTSIDE RECORDS SUMMARY | ~2020-05-24 | XMS | Encounter Summary ---
Demographics + + + | Address | [address] | | | [place] [address] | + + + | Home Phone | | + + + | Preferred Language | Unknown | + + + | Marital Status | Single | + + + | Presybeterian Affiliation | LUT | + + + | Race | White | + + + | Ethnic Group | Not or | + + + Author + + + | Author | [facility] | + + + | Organization | [facility] | + + + | Address | Unknown | + + + | Phone | Unavailable | + + + Support + + + + + | Name | Relationship | Address | Phone | + + + + + | Cherry Headley | ECON | [address] | | | | | [place] | | | | | [address] | | + + + + + Care Team Providers + +------+ + | Care 3Rd Pressman Name | Role | Phone | + [...] Alternating | | 2010 | Visit | [facility] | | exotropia with V | | | | at [facility] | | pattern; Hypertropia | | | | [address] [facility] | | | | | | [facility] [place], | | | | | | 5th floor | | | | | | [place] [address] | | | | | | [phone] | | | +--------+---------+ + + + [...] Headley is a 15 y.o. female from [place] accompanied b y mother. Here for exotropia consult. History of surgery aged 6 years at [facility] for exotropia. Started weari ng [...] Alert, age-appropriate behavior Current Correction: Sphere Cylinder [place] Add Prism Right Eye +0.50 +0.25 017 4 in 1.5 dn Left Eye +0.25 +0.25 165 4 in 1.5 up Comments: Stereo: Fly +, Animals 2/3, Circles 2/9 Visual acuity: Distance fixation: Method: Snellen linear Without Correction With Correction Pinhole cc Pinhole sc Isolated Right Eye 20/30 -1 20/30 20 Left Eye 20/30 20/30 Both Eyes VA Comments: Near: at 14 inches Method: Bracketz near card Without Correction With Correction Right Eye J3 Left Eye J3 Both Eyes Confrontation Woods:Full both eyes Motility Exam: Adaptive abnormal head posture: none Distance Alignment: wy short room 28 XT 3 RHT Builds to 15 XT 7 RHT Builds to 18 XT 8 RHT 16 XT 10 RHT 12 XT 6 RHT Near: wy cc Primary: To 10 XT' 2 RHT' [...]
--- OUTSIDE RECORDS SUMMARY | ~2020-05-24 | XMS | Encounter Summary ---
Demographics + + + | Address | [address] | | | [place] [address] | + + + | Home Phone | | + + + | Preferred Language | Unknown | + + + | Marital Status | Single | + + + | Hoahaoism Affiliation | LUT | + + + | Race | White | + + + | Ethnic Group | Not or | + + + Author + + + | Author | [facility] | + + + | Organization | [facility] | + + + | Address | Unknown | + + + | Phone | Unavailable | + + + Support + + + + + | Name | Relationship | Address | Phone | + + + + + | Cherry Headley | ECON | [address] | | | | | [place] | | | | | [address] | | + + + + + Care Team Providers + +------+ + | Care Medical Numerical Control Operator Name | Role | Phone | [...] to [facility] | | | | [address] [facility] | [address] | with Dr. Rodgers ) | | | | [place], [facility] | [place], [place] | | | | | [place], [place] | [address] | | | | | [address] | [phone] | | | | | | | [...]
--- OUTSIDE RECORDS SUMMARY | ~2020-05-24 | XMS | Encounter Summary ---
Demographics + + + | Address | [address] | | | [place] [address] | + + + | Home Phone | | + + + | Preferred Language | Unknown | + + + | Marital Status | Single | + + + | Evangelical Affiliation | LUT | + + + [...] [place] | | | | | [address] | | + + + + + Care Team Providers + +------+ + | Care Spinning Room Worker Name | Role | Phone [...] on | Eye Clinic [address] | (surgical | | | | [address] [facility] | [address] | documentation | | | | [place], [address]th | [place], [place] | 10/01/2011) | | | | floor [place], [place] | [address] | | | | | [address] | [phone] | | | | | | | [...]
--- OUTSIDE RECORDS SUMMARY | ~2020-05-24 | XMS | Encounter Summary ---
Demographics + + + | Address | [address] | | | [place] [address] | + + + | Home Phone [...] [place] | | | | | [address] | | + + + + + Care Team Providers + +------+ + | Care Resident Caregiver Name | Role | Phone | + +------+ + | Cornelius Jerry MD | PCP | | + +------+ + Reason for Visit + + + | Reason | Comments | + + + | Post Op | | + + + | Strabismus | | + + + Encounter Details +--------+---------+ + + + | Date | Type | Department | Care Team | Description | +--------+---------+ + + + | 11/10/ | Office | [facility] | Deedee Gottlieb | Hypertropia; | | 2010 | Visit | [facility] | | Alternating | | | | at [facility] | | exotropia with V | | | | [address] | | pattern; Convergence | | | | [facility], | | insufficiency or | | | | 5th floor | | palsy in binocular | | | | [place] [address] | | eye movement | | | | [phone] | | | +--------+---------+ + + + [...] Headley is a 16 y.o. female from [place] accompanied by Yemeni- speaking mother. Presents with 1 month post [...] 5 RHT 10 ET 2 RH Near: pr cc Primary: 3 X' 2 RH' Downgaze: [...] at home Plan 1. 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
--- OUTSIDE RECORDS SUMMARY | ~2020-05-24 | XMS | Encounter Summary ---
Demographics + + + | Address | [address] | | | [place] [address] | + + + | Home Phone | | + + + | Preferred Language | Unknown | + + + | Marital Status | Single | + + + | Protestant Affiliation | LUT | + + + | Race | White | + + + | Ethnic Group | Not or | + + + Author + + + | Author | [facility] | + + + | Organization | [facility] | + + [...] [place] | | | | | [address] | | + + + + + Care Team Providers + +------+ + | Care Music Rehabilitation Therapist Name | Role | Phone | + [...] Hypertropia; | | 2010 | Visit | [facility] | | Alternating | | | | at [facility] | | exotropia with V | | | | [address] | | pattern; Convergence | | | | [facility], | | insufficiency or | | | | 5th floor | | palsy in binocular | | | | [place] [address] | | eye movement | | | | [phone] | | | +--------+---------+ + + + [...] Headley is a 16 y.o. female from [place] accompanied by Comoran- speaking mother. Presents with 1 month post [...] 5 RHT 10 ET 2 RH Near: ms cc Primary: 3 X' 2 RH' Downgaze: [...]
--- OUTSIDE RECORDS SUMMARY | ~2020-05-24 | XMS | Encounter Summary ---
Demographics + + + | Address | [address] | | | [place] [address] | + + + | Home Phone | | + + + | Preferred Language | Unknown | + + + | Marital Status | Single | + + + | Mosque Affiliation | LUT | + + + | Race | White | + + + | Ethnic Group | Not or | + + + Author + + + | Author | [facility] | + + + | Organization | [facility] | + + + | Address | Unknown | + + + | Phone | Unavailable | + + + Support + + + + + | Name | Relationship | Address | Phone | + + + + + | Cherry Headley | ECON | [address] | | | | | [place] | | | | | [address] | | + + + + + Care Team Providers + +------+ + | Care Place Change Roof Bolter Name | Role | Phone | + +------+ + | Cornelius Jerry MD | PCP | | + +------+ + Encounter Details +--------+---------+ + + + | Date | Type | Department | Care Team | Description | +--------+---------+ + + + | 09/30/ | Office | [facility] | Pancho Thakur MD | Alternating | | 2010 | Visit | [facility] Clinic [address] | [address] | exotropia with V | | | | [address] [facility] | [address] | pattern (Primary | | | | [place], [address]th | [place], [place] | Dx); Exotropia, | | | | [place] | [address] | unspecified; | | | | [phone] | [phone] | Hypertropia; | | | | | [...] Headley is a 16 y.o. female from [place] accompanied by French- speaking mother. Here for surgical plan. No [...]
--- OUTSIDE RECORDS SUMMARY | ~2020-05-24 | XMS | Encounter Summary ---
Demographics + + + | Address | [address] | | | [place] [address] | + + + | Home Phone | | + + + | Preferred Language | Unknown | + + + | Marital Status | Single | + + + | Christian Affiliation | LUT | + + + | Race | White | + + + | Ethnic Group | Not or | + + + Author + + + | Author | [facility] | + + + | Organization | [facility] | + + + | Address | Unknown | + + + | Phone | Unavailable | + + + Support + + + + + | Name | Relationship | Address | Phone | + + + + + | Cherry Headley | ECON | [address] | | | | | [place] | | | | | [address] | | + + + + + Care Team Providers + +------+ + | Care Sight Effects Specialist Name | Role | Phone | [...] + + | 01/05/ | Office | [facility] | Pancho Thakur MD | Exophoria (Primary | | 2011 | Visit | [facility] Clinic [address] | [address] | Dx) | | | | [place] [facility] | [address] | | | | | [place], [facility] | [place], [place] | | | | | floor [place], [place] | [address] | | | | | [address] | [phone] | | | | | | | [...] Headley is a 16 y.o. female from [place] accompanied by Iraqi- speaking mother. Patient is 3 months post [...] VA Comments: Near: at 14 inches Method: [employer] near card Without Correction With Correction Right Eye J1 Left Eye J1 Both Eyes States she is having no problem reading and passed the [facility] assessment test Pupils: No APD Right eye: [...] documentation PANCHO THAKUR MD [facility] Treatment Not on filedocumented as of this encounter Visit Diagnoses + + | Diagnosis | + + | Exophoria - Primary | + + documented in this encounter"
--- OUTSIDE RECORDS SUMMARY | ~2020-05-24 | XMS | Encounter Summary ---
Demographics + + + | Address | [address] | | | [place] [address] | + + + | Home Phone [...] Author + + + | Author | [facility] | + + + | Organization | [facility] | + + + | Address | Unknown | + + + | Phone | Unavailable | + + + Support + + + + + | Name | Relationship | Address | Phone | + + + + + | Cherry Headley | ECON | [address] | | | | | [place] | | | | | [address] | | + + + + + Care Team Providers + +------+ + | Care Sponge Fisherman Name | Role | Phone | + [...] | on | [facility] Clinic [address] | [address] | | | | | [address] [facility] | [address] | | | | | [place], [address] | [place], [place] | | | | | floor [place], [place] | [address] | | | | | [phone] | [phone] | | | | | | | [...]
[~2020-05-24 14:03] MED LIST: DEPO-PROVER150 MG/ML IM; KEFLEX500 MG PO; NAPROXEN500 MG PO; NORCO 7.5-3251 EACH PO
--- NOTE | 2020-05-25 15:36 | EKG ---
[facility] [address] [facility] [place], [place] [address] Signed Sinus tachycardia Otherwise normal ECG No previous ECGs available Confirmed by ELIDIA FERNANDEZ MD ([id number]) on 05/25/2020 3:36:25 PM Electronically Signed By: ELIDIA FERNANDEZ MD 05/25/20 1536 PATIENT NAME: MAX CASH Electrocardiogram DATE OF : [birth year] PHYSICIAN: ELIDIA FERNANDEZ MD REPORT #: [id number] REPORT IS CONFIDENTIAL AND NOT TO BE RELEASED WITHOUT AUTHORIZATION
== END 2020-05-24 16:35 | disposition home or self-care (01) ==
LOC: ED 14:03
DX: O99.512 Diseases of the respiratory system complicating pregnancy, second trimester (principal); J06.9 Acute upper respiratory infection, unspecified; J45.909 Unspecified asthma, uncomplicated; Z3A.28 28 weeks gestation of pregnancy
CPT/HCPCS: 93005; 93010; 94640; 99285-25; C9803; U0002

== ENCOUNTER 2020-08-25 14:03 | Inpatient (IN) | payer OTHER ==
[~2020-08-25] VITALS: Ht 157.5 cm; Wt 106.1 kg
--- OUTSIDE RECORDS SUMMARY | ~2020-08-25 | XMS | Encounter Summary ---
Demographics + + + | Address | [address] | | | [place] [address] | + + + | Home Phone | | + + + | Preferred Language | Unknown | + + + | Marital Status | Single | + + + | Jain Affiliation | LUT | + + + | Race | White | + + + | Ethnic Group | Not or | + + + Author + + + | Author | [facility] | + + + | Organization | [facility] | + + + | Address | Unknown | + + + | Phone | Unavailable | + + + Support + + + + + | Name | Relationship | Address | Phone | + + + + + | Cherry Headley | ECON | [address] | | | | | [place] | | | | | [address] | | + + + + + Care Team Providers + +------+ + | Care Landing Worker Name | Role | Phone | + +------+ + | Cornelius Jerry MD | PCP | | + +------+ + Reason for Visit + +--------+ + | Reason | Onset | Comments | | | Date | | + +--------+ + | Post Op | | | + +--------+ + | Strabismus | 11/10/ | | | | 2010 | | + +--------+ + Encounter Details +--------+---------+ + + + | Date | Type | Department | Care Team | Description | +--------+---------+ + + + | 11/10/ | Office | [facility] | Deedee Gottlieb | Hypertropia; | | 2010 | Visit | [facility] | | Alternating | | | | at [facility] | | exotropia with V | | | | [address] | | pattern; Convergence | | | | [facility] [place], | | insufficiency or | | | | 5th | | palsy in binocular | | | | [place] [address] | | eye movement | | | | [phone] | | | +--------+---------+ + + + [...] on file | | + + + documented as of this encounter Progress Notes Deedee Gottlieb - 11/10/2011 11:58 AM PSTFormatting of this note might be different from the o valenciainal. SENSORY MOTOR EXAM: INTERVAL HISTORY: Petty Head[place] is a 16 y.o. female from [place] accompanied by Mongolian- speaking mother. Presents with 1 month post strab sx LMRs 4mm, DEE myotomy, RMRs 4mm on adj. Vision and alignment good per mother and patient. Petty c/o constant pain in OD of 4/10. N o pain medication being taken, but aware of pain in OD almost constantly. 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 EXAMINATION: Mental Status: Alert, age-appropriate behavior No glasses Stereo: Fly +, Animals 3/3, Circles 9/9 Visual acuity: Distance fixation: Method: Snellen - Linear Without Correction With Correction Pinhole cc Pinhole sc Isolated Right Eye 20/15 Left Eye 20/15 -2 Both Eyes VA Comments: Motility Exam: Adaptive abnormal head posture: Distance Alignment: sc 8 X-XT 6 ET 3 RH (T) 5 ET 5 RHT 10 ET 2 RH Near: sc cc Primary: 3 X' 2 RH' Downgaze: NPC: Binocular but poorly maintained, OS diverges easily. 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 Should practice pull ups at home Plan 1. Care directed by Dr Rodgers. Vinayak Cain. 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
--- OUTSIDE RECORDS SUMMARY | ~2020-08-25 | XMS | Encounter Summary ---
Demographics + + + | Address | [address] | | | [place] [address] | + + + | Home Phone | | + + + | Preferred Language | Unknown | + + + | Marital Status | Single | + + + | Shinto Affiliation | LUT | + + + | Race | White | + + + | Ethnic Group | Not or | + + + Author + + + | Author | [facility] | + + + | Organization | [facility] | + + + | Address | Unknown | + + + | Phone | Unavailable | + + + Support + + + + + | Name | Relationship | Address | Phone | + + + + + | Cherry Headley | ECON | [address] | | | | | [place] | | | | | [address] | | + + + + + Care Team Providers + +------+ + | Care Inspector Of Dredging Name | Role | Phone | + +------+ + | Cornelius Jerry MD | PCP | | + +------+ + Reason for Visit + +--------+ + | Reason | Onset | Comments | | | Date | | + +--------+ + | Strabismus | 10/08/ | | | | 2010 | | + +--------+ + Encounter Details +--------+---------+ + + + | Date | Type | Department | Care Team | Description | +--------+---------+ + + + | 10/02/ | Office | [facility] | Vonda Gay | Hypertropia; | | 2010 | Visit | [facility] | [address] [facility] [address] | Esotropia, | | | | at [facility] | [address] | unspecified | | | | [address] | [place] [address] | | | | | [facility], | | | | | | 5th floor | | | | | | [place] [address] | | | | | | [phone] | | | +--------+---------+ + + + [...] documented as of this encounter Progress Notes Vonda Gay - 10/08/2011 3:18 PM PST Sensorimotor Examination: [...]
--- OUTSIDE RECORDS SUMMARY | ~2020-08-25 | XMS | Encounter Summary ---
Demographics + + + | Address | [address] | | | [place] [address] | + + + | Home Phone | | + + + | Preferred Language | Unknown | + + + | Marital Status | Single | + + + | Lutheran Affiliation | LUT | + + + | Race | White | + + + | Ethnic Group | Not or | + + + Author + + + | Author | [facility] | + + + | Organization | [facility] | + + + | Address | Unknown | + + + | Phone | Unavailable | + + + Support + + + + + | Name | Relationship | Address | Phone | + + + + + | Cherry Headley | ECON | [address] | | | | | [place] | | | | | [address] | | + + + + + Care Team Providers + +------+ + | Care Tennis Net Maker Name | Role | Phone | + [...] on | Eye Clinic [address] | [address] [facility] | (surgical | | | | [address] [facility] | [facility] | documentation | | | | [place] | [place], [place] | 10/01/2011) | | | | floor [place] | [address] | | | | | [address] | [phone] | | | | | | | [...] + + documented as of this encounter Miscellaneous Notes Telephone Encounter - Enoc Collins - 10/02/2011 1:09 PM PST documented in this encounter Plan of Treatment Not on filedocumented as of this encounter Visit Diagnoses Not on filedocumented in this encounter"
--- OUTSIDE RECORDS SUMMARY | ~2020-08-25 | XMS | Encounter Summary ---
Demographics + + + | Address | [address] | | | [place] [address] | + + + | Home Phone | | + + + | Preferred Language | Unknown | + + + | Marital Status | Single | + + + | Yarsanism Affiliation | LUT | + + + [...] [place] | | | | | [address] | | + + + + + Care Team Providers + +------+ + | Care Wastewater Technician Name | Role | Phone | + [...] + + | 11/10/ | Office | [facility] | Pancho Thakur MD | Hypertropia (Primary | | 2010 | Visit | Eye Clinic [address] | [address] | Dx) | | | | [address] [facility] | [facility] | | | | | [place] | [place], [place] | | | | | floor [place] | [address] | | | | | [address] | [phone] | | | | | | | [...] Headley is a 16 y.o. female from [place] accompanied by Bolivian- speaking mother. Presents with 1 month post [...] age-appropriate behavior Current Correction: Type: Sphere Cylinder B[place]y [place]ne Add Prism Right Eye Left Eye Comments: Stereo: Fly +, Animals 3/3, Circles 9/9 Visual acuity: Distance fixation: Method: Snellen - Linear Without Correction With Correction Pinhole cc Pinhole sc Isolated Right Eye 20/15 Left Eye 20/15 -2 Both Eyes VA Comments: Confrontation Woods:Full both eyes Please see below in the assessment and plan for interpretation of the territory sales manager medical sensorimot or exam. Pupils: No APD Right [...]
--- OUTSIDE RECORDS SUMMARY | ~2020-08-25 | XMS | Clinical Summary ---
Demographics + + + | Address | [address] | | | [place] [address] | + + + | Home Phone | | + + + | Preferred Language | Unknown | + + + | Marital Status | Single | + + + | Confucianism Affiliation | LUT | + + + | Race | White | + + + | Ethnic Group | Not or | + + + Author + + + | Author | [facility] | + + + | Organization | [facility] | + + + | Address | Unknown | + + + | Phone | Unavailable | + + + Support + + + + + | Name | Relationship | Address | Phone | + + + + + | Jackelyn Cash | ECON | [address] | | | | | [place] | | | | | [address] | | + + + + + Care Team Providers + +------+ + | Care Taker Off Braker Machine Name | Role | Phone | + +------+ + | Cornelius Jerry MD | PCP | | + +------+ + Source Comments SHAE is fully live on both [facility] and [facility] Allergies No Known Allergies Medications No known [...] on file | | + + + Last Filed Vital Signs + [...] + + Plan of Treatment + + +-------+ + | Health Maintenance | Due Date | Last | Comments | | | | Done | | + + +-------+ + | Influenza (Flu) | | | | | vaccination (#1) | 0 | | | + + +-------+ + | Pneumococcal | Aged Out | | No longer eligible based on patient's age | | vaccination | | | to complete this topic | + + +-------+ + Results Not on filefrom Last 3 [...] +------+ | [facility] | MODA | [id number] | | [phone] | [address] | [address] | | | [address] | | [address] | [phone] | | | | [place] | | esent | | [place], | | | | [place] | | | | [place] [address] | | + +--------+ +--------+ + +------+ [...] | [address] | | | gene/Morales | | 1971 | [phone] | [place] | | | [place] | | | [address] ([place]) | [address] | + +--------+ +--------+ + +
--- OUTSIDE RECORDS SUMMARY | ~2020-08-25 | XMS | Encounter Summary ---
Demographics + + + | Address | [address] | | | [place] [address] | + + + | Home Phone | | + + + | Preferred Language | Unknown | + + + | Marital Status | Single | + + + | Holiness Affiliation | LUT | + + + [...] [place] | | | | | [address] | | + + + + + Care Team Providers + +------+ + | Care It Systems Engineer Name | Role | Phone | + +------+ + | Cornelius Jerry MD | PCP | | + +------+ + Reason for Visit AUTH/CERT (Routine) +--------+--------+ + + + + | Status | Reason | Specialty | Diagnoses / | Referred By | Referred To | | | | | Procedures | Contact | Contact | +--------+--------+ + + + + | Closed | | | | | | +--------+--------+ + + + + Encounter Details +--------+ + + + + | Date | Type | Department | Care Team | Description | +--------+ + + + + | 10/01/ | Hospital | [facility] | Pancho Thakur MD | | | 2010 | Encounter | STAY [address] [facility] | [address] [facility] | | | | | Dr Emiliano Heck | [address] | | | | | [place] | [place], [place] | | | | | [place], [place] | [address] | | | | | [address] | [phone] | | | | | | | [...] + + documented as of this encounter Last Filed Vital Signs + + + [...] | | + + + + + documented in this encounter Discharge Instructions Instructions Rocío Dodson RN - 10/01/2011Please review Home Care after Eye Muscle Surgery instructions. documented in this encounter Medications at Time of Discharge + + + +---------+ + + | Medication | Sig | Dispensed | Refills | Start | End Date | | | | | | Date | | + + + +---------+ + + | | Instill 0.5 Inches | 3.5 g | 0 | 10/01/20 | | | oskdgjas-sewjowiek-h | into both eyes two | | | 11 | 1 | | examethasone | times daily for 10 | | | | | | (MAXITROL) | days. Label ONLY - | | | | | | 3.5-10,000-0.1 | [facility] | | | | | | mg-unit/g-% | Pharmacy to label | | | | | | Ophthalmic Ointment | bottle for | | | | | | | outpatient | | | | | | | dispensing | | | | | + + + +---------+ + + documented as of this encounter H&P Notes Pancho Thakur MD - 10/01/2011 5:47 AM PSTThe patient history and physical was personally reviewed by me. No changes are noted. PANCHO THAKUR MD documented in this enc ounter Procedure Notes Other, Faculty - 10/05/2011 2:14 PM PSTAssociated Order(s): PROCEDURE NOTEElectronically s igned by Faculty Other at 10/05/2011 2:14 PM PSTOther, Faculty - 10/03/2011 10:04 AM PSTAss ociated Order(s): ANESTHESIA/SEDATION 10 :04 AM Pancho Lockhart MD - 10/02/2011 6:25 AM PSTAssociated Order(s): PROCEDURE NOTEDat e of operation October 01, 2011 Preoperative diagnosis. Residual exotropia status post prior strabismus surgery. Right hy pertropia Postoperative diagnosis. The same Operation performed. Right inferior oblique marginal myotomy. Right medial rectus resectio n 4.0 mm with adjustable suture Left medial rectus resection 4.0 mm. Complications. None Operation. The patient was taken to the operating room where After appropriate line placement and mon itoring devices general anesthesia was performed. Both eyes were prepped and draped in the usual manner. With lid speculum in place forced ductions were performed. There was mild res istance for full adduction bilaterally more than abduction. A fornix based conjunctival flap was made over the right medial rectus muscle. The medial rectus muscle was hooked on Sandhu followed by Ernesto followed by Green muscle hooks until well secured. Conjunctiva and connective-tissue were stripped with blunt followed by sharp dissection. The muscle was placed on stretch between two Green muscle hook. At a position m easured 4.0 millimeters from the original insertion, a 6-0 double armed Vicryl suture was t hen passed through the middle one third of the muscle and tied in a knot. It was then woven from midpoint superiorly and midpoint inferiorly with a lock bite at each border. A modifie d mosquito forcep was placed just anterior to the suture placement. The muscle was then dis inserted and trimmed adjacent to the clamp. The free end of the clamp was cauterized. The clamp was removed and the muscle was reattached using partial-thickness scleral tunnels thro ugh the original muscle insertion point. It was pulled up and a slipknot of Vicryl placed o rio the suture to adjust the amount of resection. . A traction suture using Vicryl was plac ed adjacent to the original insertion. The muscle was re-examined and seen to be in good po sition. A medial inferior fornix incision was made over the left medial rectus muscle.. The medial rectus muscle was hooked on Sanhdu followed by Ernesto followed by Green muscle hooks unti l well secured. Conjunctiva and connective-tissue were stripped with blunt followed by sharp dissection. The muscle was placed on stretch between two Green muscle hook. At a position measured 4.0 millimeters from the original insertion, a 6-0 double armed Vicryl suture was then passed through the middle one third of the muscle and tied in a knot. It was then wove n from midpoint superiorly and midpoint inferiorly with a lock bite at each border. A modifi ed mosquito forcep was placed just anterior to the suture placement. The muscle was then di sinserted and trimmed adjacent to the clamp. The free end of the clamp was cauterized. The clamp was removed and the muscle was reattached using partial-thickness scleral tunnels thr ough the original muscle insertion point. It was pulled up and tied with 4 knots. The musc le was re-examined and seen to be in good position. An inferior temporal fornix incision was made posterior to the previous surgery scar tissu e in the inferior temporal quadrant of the right eye..The lateral rectus and inferior rectus muscles were hooked on Sandhu followed by the Maxwelton muscle hooks until well secured. The eye was abducted and elevated. A Minot retractor was used to open the surgical field. Unde r direct view the posterior border of the inferior oblique muscle was viewed and hooked on a small muscle hook and delivered to the surgical opening. It was cleared of overlying conne ctive tissue. The inferior oblique was placed on stretch between two Maxwelton hooks. Separat ion was approximately 8-10 mm. Hemostats were placed across approximally 75 to 80% of the mu scle adjacent to each of the books. The clamps were placed from opposite directions. The he mostats removed and the group cauterized and then cut with William scissors. This gave a 75 to 80% marginal myotomy. There is no bleeding noted from the muscle. It was allowed to re tract into the inferior temporal quadrant. The conjunctiva was closed with 6-0 plain suture for all three incision sites. The adjustment suture for the right media rectus was passed o rio the medial canthus and onto the lower lid. Maxitrol ointment was placed over both eyes. To eye patches and silk tape were placed over the closed lids on the right eye.The patient was taken to recovery without difficulty or complication. Surgeon Pancho Thakur MD Cd Storage And Materials Make Up Helper Ophthalmology and Pediatrics Director, [facility] [phone] Neurology Nurse surgeon Alexis Jimenez MD Ophthalmology Resident ther, Faculty - 10/01 3:04 PM PSTAssociated Order(s): ANESTHESIA/SEDATION documented in this encounter Miscellaneous Notes Scan - Other, Faculty - 10/05/2011 2:14 PM PSTElectronically signed by Faculty Other at 2:14 PM PSTScan - Other, Faculty - 10/05/2011 2:14 PM PST can - Other, Faculty - 10/05/2011 2:14 PM PSTElec tronically signed by Faculty Other at 10/05/2011 2:14 PM PSTScan - Other, Faculty - 011 12:25 PM PST documented in this encounter Plan of Treatment Not on filedocumented as of this encounter Procedures + +--------+ + + + | Procedure Name | Priori | Date/Time | Associated Diagnosis | Comments | | | ty | | | | + +--------+ + + + | PROCEDURE NOTE | Routin | 12/28/2015 | | Results for this | | | e | 4:46 AM | | procedure are in the | | | | PST | | results section. | + +--------+ + + + | PROCEDURE NOTE | Routin | 12/28/2015 | | Results for this | | | e | 4:44 AM | | procedure are in the | | | | PST | | results section. | + +--------+ + + + | ANESTHESIA/SEDATION | | 10/01/2011 | | Results for this | | | | 12:00 AM | | procedure are in the | | | | PST | | results section. | + +--------+ + + + | ANESTHESIA/SEDATION | | 10/01/2011 | | Results for this | | | | 12:00 AM | | procedure are in the | | | | PST | | results section. | + +--------+ + + + documented in this encounter Results PROCEDURE NOTE (12/28/2015 4:46 AM PST)PROCEDURE NOTE (12/28/2015 4:44 AM PST) + + | Transcriptions | + + | Sachin Faculty - 10/05/2011 2:14 PM PST | + + ANESTHESIA/SEDATION (10/01/2011 12:00 AM PST) + + + | Narrative | Performed At | + + + | | | + + + + + | Transcriptions | + + | Kian Stephenson - 10/03/2011 10:04 AM PST | + + ANESTHESIA/SEDATION (10/01/2011 12:00 AM PST) + + + | Narrative | Performed At | + + + | | | + + + + + | Transcriptions | + + | Sachin Faculty - 10/01/2011 3:04 PM PST | + + documented in this encounter Visit Diagnoses Not on filedocumented in this encounter Administered Medications + +--------+ +--------+------+------+ | Medication Order | MAR | Action | Dose | Rate | Site | | | Action | Date | | | | + +--------+ +--------+------+------+ | acetaminophen (aka TYLENOL) | Given | 10/01/20 | 500 mg | | | | tablet 500 mg 500 mg, oral, | | 11 3:50 | | | | | ONCE, 1 dose, 10/01/11 at 1600 | | PM PST | | | | + +--------+ +--------+------+------+ +---+---+ | | | +---+---+ + +---------+ + + +---+ | lactated ringers IV 10 mL/hr, | New Bag | 10/01/20 | 10 mL/hr | 10 mL/hr | | | intravenous, CONTINUOUS, Starting | | 11 12:02 | | | | | 10/01/11 at 1115, Until Wed | | PM PST | | | | | 10/01/11 at 2218 | | | | | | + +---------+ + + +---+ +---+---+ | | | +---+---+ documented in this encounter
--- OUTSIDE RECORDS SUMMARY | ~2020-08-25 | XMS | Encounter Summary ---
Demographics + + + | Address | [address] | | | [place] [address] | + + + | Home Phone [...] Author | [facility] | + + + | Organization | [facility] | + + + | Address | Unknown | + + + | Phone | Unavailable | + + + Support + + + + + | Name | Relationship | Address | Phone | + + + + + | Cherry Headley | ECON | [address] | | | | | [place] | | | | | [address] | | + + + + + Care Team Providers + +------+ + | Care Flavor Room Worker Name | Role | Phone | + +------+ + | Cornelius Jerry MD | PCP | | + +------+ + Encounter Details +--------+---------+ + + + | Date | Type | Department | Care Team | Description | +--------+---------+ + + + | 01/23/ | Office | [facility] | Pancho Thakur MD | Alternating | | 2010 | Visit | Eye Clinic [address] | [address] | exotropia (Primary | | | | [address] [facility] | [facility] [address] | Dx); Hyperopia; | | | | [place], [address] | [place], [place] | Hypertropia; | | | | floor [place] | [address] | Exotropia, | | | | [phone] | [phone] | unspecified | | | | | [...] Pancho Thakur MD - 01/24/2011 8:23 AM [facility] COMPREHENSIVE OPHTHALMOLOGY EXAM: REASON FOR VISIT: Petty Headley is a 15 y.o. female here for exotropia consult HISTORY OF PRESENT PROBLEM: surgery aged 6 years old in [facility] for XT. Started wearing prism glasses after surgery age 8 or so. BARCLAY's daily diplopia once in awhile PAST OCULAR HISTORY: also had patching and some exercises PAST MEDICAL HISTORY: good health FAMILY HISTORY OF EYE DISEASE: father with XT I, Wallace Mcneal, am functioning as a scribe for Dr Thakur. IMPRESSION: 1. Exotropia status post prior surgery in [place] 2 Right hypertropia PLAN: 1. Consider two [...] THAKUR MD documented in this en counter Miscellaneous Notes Scan - Other, Faculty - 09/17/2011 10:33 AM PDTElectronically signed by Faculty Other at 10:33 AM PDTScan - Sachin, Faculty - 01/23/2011 4:52 PM PST can - Sachin, Faculty - 01/23/2011 12:00 AM PST documented in this encou nter Plan of Treatment Not on filedocumented as of this encounter Procedures + +--------+ + + + | Procedure Name | Priori | Date/Time | Associated Diagnosis | Comments | | | ty | | | | + +--------+ + + + | [facility] | Routin | 01/24/2011 | Hyperopia | | | EVALSENSORIMOTOR | e | 10:15 AM | | | | | | PST | | | + +--------+ + + + | [facility] REFRACTION - C | Routin | 01/24/2011 | Hypertropia | | | ([place]) | e | 10:15 AM | Exotropia, [...]
--- OUTSIDE RECORDS SUMMARY | ~2020-08-25 | XMS | Encounter Summary ---
Demographics + + + | Address | [address] | | | [place] [address] | + + + | Home Phone | | + + + | Preferred Language | Unknown | + + + | Marital Status | Single | + + + | Denominational Affiliation | LUT | + + + | Race | White | + + + | Ethnic Group | Not or | + + + Author + + + | Author | [facility] | + + + | Organization | [facility] | + + + | Address | Unknown | + + + | Phone | Unavailable | + + + Support + + + + + | Name | Relationship | Address | Phone | + + + + + | Cherry Headley | ECON | [address] | | | | | [place] | | | | | [address] | | + + + + + Care Team Providers + +------+ + | Care Dynamometer Tester Name | Role | Phone | + +------+ + | Cornelius Jerry MD | PCP | | + +------+ + Reason for Visit + +--------+ + | Reason | Onset | Comments | | | Date | | + +--------+ + | Follow-up visit | | post op | + +--------+ + | Strabismus | 01/05/ | | | | 2011 | | + +--------+ + Encounter Details +--------+---------+ + + + | Date | Type | Department | Care Team | Description | +--------+---------+ + + + | 01/05/ | Office | [facility] | Deedee Gottlieb | Convergence | | 2011 | Visit | [facility] | | insufficiency or | | | | at [facility] | | palsy in binocular | | | | [address] | | eye movement; | | | | [facility] [place], | | Alternating | | | | 5th floor | | exotropia with V | | | | [place] [address] | | pattern; Diplopia | | | | [phone] | | | +--------+---------+ + + + [...] + documented as of this encounter Progress Deedee Tyler - 01/05/2012 12:30 PM PSTFormatting of this note might be different from the o jose. SENSORY MOTOR EXAM: Reason For Visit: Follow-up visit - intermittent exotropia INTERVAL HISTORY: Petty Headley is a 16 y.o. female from [place] accompanied by Bahraini- speaking mother. Patient is 3 months post [...] VA Comments: Near: at 14 inches Method: [place] near card Without Correction With Correction Right Eye J1 Left Eye J1 Both Eyes States she is having no problem reading and passed the PALESTINE Promon assessment test Motility Exam: Adaptive abnormal head [...] extra school work unless she practises at [employer] 3. Some diplopia in left and down gaze intermittently due to incomitance. Plan 1. Suggested computer orthoptics if she does not want to do the push ups as directed 2. Mom will consider this. Care directed by Dr Karr. Deedee Gottlieb, C.O. 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
--- OUTSIDE RECORDS SUMMARY | ~2020-08-25 | XMS | Encounter Summary ---
Demographics + + + | Address | [address] | | | [place] [address] | + + + | Home Phone | | + + + | Preferred Language | Unknown | + + + | Marital Status | Single | + + + | Advent Affiliation | LUT | + + + | Race | White | + + + | Ethnic Group | Not or | + + + Author + + + | Author | [facility] | + + + | Organization | [facility] | + + + | Address | Unknown | + + + | Phone | Unavailable | + + + Support + + + + + | Name | Relationship | Address | Phone | + + + + + | Cherry Headley | ECON | [address] | | | | | [place] | | | | | [address] | | + + + + + Care Team Providers + +------+ + | Care Dental Office Receptionist Name | Role | Phone | + +------+ + | Cornelius Jerry MD | PCP | | + +------+ + Reason for Visit + +--------+ + | Reason | Onset | Comments | | | Date | | + +--------+ + | Strabismus | 01/24/ | | | | 2010 | | + +--------+ + Encounter Details +--------+---------+ + + + | Date | Type | Department | Care Team | Description | +--------+---------+ + + + | 01/23/ | Office | [facility] | Deedee Gottlieb | Alternating | | 2010 | Visit | [facility] | | exotropia with V | | | | at [facility] | | pattern; Hypertropia | | | | [address] | | | | | | [facility], | | | | | | [address] [place] [address] | | | | | | [place] [address] | | | | | | [phone] | | | +--------+---------+ + + + [...] documented as of this encounter Progress Notes GottliebDeedee - 01/24/2011 10:19 AM PSTFormatting of this note might be different from the o valenciainal. COMPREHENSIVE OPHTHALMOLOGY EXAM: HISTORY OF PRESENT PROBLEM: Petty Headley is a 15 y.o. female from [place] accompanied b y mother. Here for exotropia consult. History of surgery aged 6 years at [facility] for exotropia. Started weari ng prism glasses [...] Alert, age-appropriate behavior Current Correction: Sphere Cylinder [place] Add Prism Right Eye +0.50 +0.25 017 4 in 1.5 dn Left Eye +0.25 +0.25 165 4 in 1.5 up Comments: Stereo: Fly +, Animals 2/3, Circles 2/9 Visual acuity: Distance fixation: Method: Snellen linear Without Correction With Correction Pinhole cc Pinhole de Isolated Right Eye 20/30 -1 20/30 20 Left Eye 20/30 20/30 Both Eyes VA Comments: Near: at 14 inches Method: ABB near card Without Correction With Correction Right Eye J3 Left Eye J3 Both Eyes Confrontation Woods:Full both eyes Motility Exam: Adaptive abnormal head posture: none Distance Alignment: de short room 28 XT 3 RHT Builds to 15 XT 7 RHT Builds to 18 XT 8 RHT 16 XT 10 RHT 12 XT 6 RHT Near: [facility] Primary: To 10 XT' 2 RHT' Downgaze: [...] Hyperopia Desires further surgery Care directed by Maury Suarez documented in this encounter Plan of Treatment Not on filedocumented as of this encounter Visit Diagnoses + + | Diagnosis | + + | Alternating exotropia with V pattern | + + | Hypertropia | + + documented in this encounter"
--- OUTSIDE RECORDS SUMMARY | ~2020-08-25 | XMS | Encounter Summary ---
Demographics + + + | Address | [address] | | | [place] [address] | + + + | Home Phone [...] + + + | Author | [facility] | + + + | Organization | [facility] | + + + | Address | Unknown | + + + | Phone | Unavailable | + + + Support + + + + + | Name | Relationship | Address | Phone | + + + + + | Cherry Headley | ECON | [address] | | | | | [place] | | | | | [address] | | + + + + + Care Team Providers + +------+ + | Care Breeding Manager Name | Role | Phone | [...] | [facility] [address] | [address] | (need to dawson surgery | | | | [address] [facility] | [address] | with Dr. Rodgers ) | | | | [place], [address] | [place], [place] | | | | | [place], [place] | [address] | | | | | [address] | [phone] | | | | | | | [...] this encounter Miscellaneous Notes Telephone Encounter - Ashley Morris - 06/12/2011 5:54 PM PDTKendra consulted with Dr. Rodgers January of 2011. Family holding off on scheduling surgery until they get their new ins . Chart filed. cdb docum ented in this encounter Plan of Treatment Not on filedocumented as of this encounter Visit Diagnoses Not on filedocumented in this encounter"
--- OUTSIDE RECORDS SUMMARY | ~2020-08-25 | XMS | Encounter Summary ---
Demographics + + + | Address | [address] | | | [place] [address] | + + + | Home Phone | | + + + | Preferred Language | Unknown | + + + | Marital Status | Single | + + + | Baptist Affiliation | LUT | + + + | Race | White | + + + | Ethnic Group | Not or | + + + Author + + + | Author | [facility] | + + + | Organization | [facility] | + + + | Address | Unknown | + + + | Phone | Unavailable | + + + Support + + + + + | Name | Relationship | Address | Phone | + + + + + | Cherry Headley | ECON | [address] | | | | | [place] | | | | | [address] | | + + + + + Care Team Providers + +------+ + | Care Sports Book Writer Name | Role | Phone | + +------+ + | Cornelius Jerry MD | PCP | | + +------+ + Encounter Details +--------+---------+ + + + | Date | Type | Department | Care Team | Description | +--------+---------+ + + + | 09/30/ | Office | [facility] | Pancho Thakur MD | Alternating | | 2010 | Visit | [facility] [address] | [address] | exotropia with V | | | | [address] [facility] | [address] | pattern (Primary | | | | [place], [address] | [place], [place] | Dx); Exotropia, | | | | [place] | [address] | unspecified; | | | | [phone] | [phone] | Hypertropia; | | | | | [...] Headley is a 16 y.o. female from [place] accompanied by Mohawk- speaking mother. Here for surgical plan. No [...]
--- OUTSIDE RECORDS SUMMARY | ~2020-08-25 | XMS | Encounter Summary ---
Demographics + + + | Address | [address] | | | [place] [address] | + + + | Home Phone [...] Author + + + | Author | [facility] | + + + | Organization | [facility] | + + + | Address | Unknown | + + + | Phone | Unavailable | + + + Support + + + + + | Name | Relationship | Address | Phone | + + + + + | Cherry Headley | ECON | [address] | | | | | [place] | | | | | [address] | | + + + + + Care Team Providers + +------+ + | Care Locum Tenens Hospitalist Name | Role | Phone | + +------+ + | Cornelius Jerry MD | PCP | | + +------+ + Encounter Details +--------+---------+ + + + | Date | Type | Department | Care Team | Description | +--------+---------+ + + + | 10/02/ | Office | [facility] | Pancho Thakur MD | Alternating | | 2010 | Visit | [facility] [address] | [address] | exotropia with V | | | | [place] [facility] | [address] | pattern (Primary | | | | [place], [address] | [place], [place] | Dx); Exotropia, | | | | [place] | [address] | unspecified; | | | | [phone] | [phone] | Hypertropia; | | | | | [...] per 24 hour period.) 20 Tab 0 dtahvzdz-bpqyfkckp-fqxfyimsadaim (MAXITROL) 3.5-10,000-0.1 mg-unit/g-% Ophthalmic Ointm ent Instill 0.5 Inches into both eyes two times daily for 10 days. Label ONLY - [facility] to label bottle for [...] THAKUR MD documented in this enc ounter Miscellaneous Notes Scan - Sachin, Faculty - 10/24/2011 1:32 PM PSTElectronically signed by Faculty Other at 1:32 PM PSTdocumented in this encounter Plan of Treatment Not [...]
--- OUTSIDE RECORDS SUMMARY | ~2020-08-25 | XMS | Encounter Summary ---
Demographics + + + | Address | [address] | | | [place] [address] | + + + | Home Phone | | + + + | Preferred Language | Unknown | + + + | Marital Status | Single | + + + | Methodist Affiliation | LUT | + + + | Race | White | + + + | Ethnic Group | Not or | + + + Author + + + | Author | [facility] | + + + | Organization | [facility] | + + + [...] [place] | | | | | [address] | | + + + + + Care Team Providers + +------+ + | Care Reactor Technician Name | Role | Phone | + +------+ + | Cornelius Jerry MD | PCP | | + +------+ + Reason for Visit + +--------+ + | Reason | Onset | Comments | | | Date | | + +--------+ + | Strabismus | 10/03/ | | | | 2010 | | + +--------+ + Encounter Details +--------+---------+ + + + | Date | Type | Department | Care Team | Description | +--------+---------+ + + + | 09/30/ | Office | [facility] | Vonda Gay | Alternating | | 2010 | Visit | [facility] | [address] | exotropia with V | | | | at [facility] | [address] | pattern; Inferior | | | | [address] | [place] [address] | oblique overaction | | | | [facility] [place], | | | | | | 5th floor | | | | | | [place] [address] | | | | | | [phone] | | | +--------+---------+ + + + [...] Headley is a 16 y.o. female from [place] accompanied by Serbian- speaking mother. Here for surgical plan. No [...] behavior Stereo: Fly +, Animals 3/3, Circles 08/01 Visual acuity: Distance fixation: Method: [...]
--- OUTSIDE RECORDS SUMMARY | ~2020-08-25 | XMS | Encounter Summary ---
Demographics + + + | Address | [address] | | | [place] [address] | + + + | Home Phone | | + + + | Preferred Language | Unknown | + + + | Marital Status | Single | + + + | Pentecostal Affiliation | LUT | + + + [...] [place] | | | | | [address] | | + + + + + Care Team Providers + +------+ + | Care Lan Support Specialist Name | Role | Phone | [...] | on | [facility] [address] | [address] [facility] [address] | | | | | [address] [facility] | [address] | | | | | [place], [address] | [place], [place] | | | | | floor [place], [place] | [address] | | | | | [address] | [phone] | | | | | | | [...] Notes Telephone Encounter - Ashley Morris - 07/15/2011 4:48 PM PDTStrabismus surgery schedu led at the [facility]: Surg eval 09/30, surgery 10/01 and 1 day post op 10/02/11. cdbEle ctronically signed by Ashley Morris at 07/15/2011 4:50 PM PDTdocumented in this encount er Plan of Treatment Not on filedocumented as of this encounter Visit Diagnoses Not on filedocumented in this encounter"
--- OUTSIDE RECORDS SUMMARY | ~2020-08-25 | XMS | Encounter Summary ---
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 female from [place] accompanied by Slovenian- speaking mother. Patient is 3 months post [...] [place] Comments: Near: at 14 inches Method: [address] near card Without Correction With Correction Right Eye J1 Left Eye J1 Both Eyes States she is having no problem reading and passed the CALLENDER state assessment test Pupils: No APD Right eye: round reactive to light PERRL Left eye: round reactive to light PERRL Intraocular Pressure: Method: Right eye: Left eye: Patient dilated at with . I, SUJEY SHANE, performed, reviewed or revised the above interval [...]
--- NOTE | 2020-08-25 22:08 | PR ---
[facility] [address] [facility] [place], [place] [address] Signed Progress Notes IP Datetime Report Generated by CPN: 08/25/2020 22:08 PROGRESS NOTES: [id number] Impression: Reassuring Heart Rate Other Impressions: slow progress Procedures: Intrauterine Pressure Catheter; Scalp Electrode; Sterile Vag Exam Plan: Continue Present Management VITAL SIGNS: [id number] Vital Signs: Reviewed; Within Normal Limits EXAM: [id number] Dilatation: 2.5 Effacement: 90 Station: -2 Contractions: None MEMBRANES: [id number] ROM Note: Pt reports water broke at 0300 this am. Comments: Very slow progress and I suspect contractions are inadequate. Will place internals and increase pitocin as needed. FETUS A: [id number] FHR Baseline: 135 Variability: Moderate 6-25bpm Accelerations: 15X15 Decelerations: None FHR Category: Category I Presentation: Vertex Comments on Fetus A: No evidence of metabolic acidosis FETUS B: [id number] Signing Physician: Daniela Contreras MD Copies: ~ *Electronically Signed* 08/25/202207 DANIELA CONTRERAS MD PATIENT NAME: MAX CASH PROGRESS NOTE DATE OF : [birth year] PHYSICIAN: DANIELA CONTRERAS MD RPT #: [id number] REPORT IS CONFIDENTIAL AND NOT TO BE RELEASED WITHOUT AUTHORIZATION
--- NOTE | 2020-08-26 03:52 | PR ---
[facility] [address] [place], [place] [address] Signed Progress Notes IP Datetime Report Generated by YOSELIN: 08/26/2020 03:51 PROGRESS NOTES: [id number] Impression: Normal Progression of Labor Other Impressions: slow progress Procedures: Intrauterine Pressure Catheter; Scalp Electrode; Sterile Vag Exam Plan: Continue Present Management Other Plans: stop pitocin for now VITAL SIGNS: [id number] Vital Signs: Reviewed; Within Normal Limits EXAM: [id number] Dilatation: 5.0 Effacement: 90 Station: -2 Contractions: None MEMBRANES: [id number] ROM Note: Pt reports water broke at 0300 this am. Comments: Some progress has been made but fetus now tachy with change in baseline. FHTs now improved but still possible lates. Will leave pit off for now and reposition and continue close observation. FETUS A: [id number] FHR Baseline: 135 Variability: Moderate 6-25bpm Accelerations: 15X15 Decelerations: None FHR Category: Category I Presentation: Vertex Comments on Fetus A: No evidence of metabolic acidosis FETUS B: [id number] Signing Physician: Daniela Contreras MD Copies: ~ *Electronically Signed* 08/26/20 035 DANIELA CONTRERAS MD PATIENT NAME: MAX CASH PROGRESS NOTE DATE OF : 96 PHYSICIAN: DANIELA CONTRERAS MD RPT #: [id number] REPORT IS CONFIDENTIAL AND NOT TO BE RELEASED WITHOUT AUTHORIZATION
--- NOTE | 2020-08-26 04:04 | PR ---
[facility] [address] [facility] [place], [place] [address] Signed Progress Notes IP Datetime Report Generated by CPN: 08/26/2020 04:04 PROGRESS NOTES: [id number] Impression: Normal Progression of Labor Other Impressions: slow progress Procedures: Sterile Vag Exam Plan: Continue Present Management; Anesthesia Consult Other Plans: stop pitocin for now VITAL SIGNS: [id number] Vital Signs: Reviewed; Within Normal Limits EXAM: [id number] Dilatation: 8.0 Effacement: 90 Station: -2 Contractions: None MEMBRANES: [id number] ROM Note: Pt reports water broke at 0300 this am. Comments: Progressing well. baseline improved with position change with some accels. Will continue to closely monitor. FETUS A: [id number] FHR Baseline: 135 Variability: Moderate 6-25bpm Accelerations: 15X15 Decelerations: None FHR Category: Category I Presentation: Vertex Comments on Fetus A: No evidence of metabolic acidosis FETUS B: [id number] Signing Physician: Daniela Contreras MD Copies: ~ *Electronically Signed* 08/26/20 0404 DANIELA CONTRERAS MD PATIENT NAME: MAX CASH PROGRESS NOTE DATE OF : 96 PHYSICIAN: DANIELA CONTRERAS MD RPT #: [id number] REPORT IS CONFIDENTIAL AND NOT TO BE RELEASED WITHOUT AUTHORIZATION
--- NOTE | 2020-08-26 09:46 | PR ---
[facility] [address] [facility] [place], [place] [address] Signed Progress Notes IP Datetime Report Generated by CPN: 08/26/2020 09:46 PROGRESS NOTES: [id number] Impression: Normal Progression of Labor Other Impressions: slow progress Procedures: Sterile Vag Exam Plan: Continue Present Management; Anesthesia Consult Other Plans: begin pushing VITAL SIGNS: [id number] Vital Signs: Reviewed; Within Normal Limits EXAM: [id number] Dilatation: 9.5 Effacement: 100 Station: -2 Contractions: None MEMBRANES: [id number] ROM Note: Pt reports water broke at 0300 this am. Comments: She is finally complete. Will begin pushing. She is not a candidate for a vacuum given her extremely slow progress as I am concerned about the size of this child. status at this time is reassuring. FETUS A: [id number] FHR Baseline: 135 Variability: Moderate 6-25bpm Accelerations: 15X15 Decelerations: None FHR Category: Category I Presentation: Vertex Comments on Fetus A: No evidence of metabolic acidosis FETUS B: [id number] Signing Physician: Daniela Contreras MD Copies: ~ *Electronically Signed* 08/26/20 0946 DANIELA CONTRERAS MD PATIENT NAME: MAX CASH PROGRESS NOTE DATE OF : 96 PHYSICIAN: DANIELA CONTRERAS MD RPT #: [id number] REPORT IS CONFIDENTIAL AND NOT TO BE RELEASED WITHOUT AUTHORIZATION
--- NOTE | 2020-08-27 08:49 | PR ---
[facility] [address] [facility] [place], [place] [address] Signed PP Progress Notes Datetime Report Generated by YOSELIN: 08/27/2020 08:48 SUBJECTIVE: [id number] Pain: Within Normal Limits Nausea/Vomiting: Denies Vital Signs: [id number] Vital Signs: Reviewed; Within Normal Limits EXAM: Met Cardiovascular: Not Done Respiratory: Not Done Abdomen/Uterus: Abnormal Lochia: Normal Vulva/Perineum: Not Done Breasts: Not Done CVA Tenderness: Not Done Extremities: Normal Incision: Not Applicable Progress: Normal Exam Comments: Fundus firm, NT @ U-1. H/H 10.8/32.9, WBC 12, plat 107k IMPRESSION/PLAN/PROCEDURES: [id number] Impression: Normal Progression Other Impression: thrombocytopenia Plan: Continue Present Management Other Plans: repeat hemogram in am Procedures: None Progress Notes: Doing well. Suspect gestational thrombocytopenia. Will recheck in am. Signing Physician: Daniela Contreras MD Copies: ~ *Electronically Signed* 08/27/20 0848 DANIELA CONTRERAS MD PATIENT NAME: MAX CASH PROGRESS NOTE DATE OF : 96 PHYSICIAN: DANIELA CONTRERAS MD RPT #: [id number] REPORT IS CONFIDENTIAL AND NOT TO BE RELEASED WITHOUT AUTHORIZATION
--- NOTE | 2020-08-28 08:03 | PR ---
[facility] [address] [facility] [place], [place] [address] Signed PP Progress Notes Datetime Report Generated by CPN: 08/28/2020 08:03 SUBJECTIVE: [id number] Pain: Within Normal Limits Nausea/Vomiting: Denies Vital Signs: [id number] Vital Signs: Reviewed; Within Normal Limits EXAM: Met Cardiovascular: Not Done Respiratory: Not Done Abdomen/Uterus: Abnormal Lochia: Normal Vulva/Perineum: Not Done Breasts: Not Done CVA Tenderness: Not Done Extremities: Normal Incision: Not Applicable Progress: Normal Exam Comments: Fundus firm, NT @ U-1. H/H 10.8/32.6, WBC 8.6, plat 116k IMPRESSION/PLAN/PROCEDURES: [id number] Impression: Normal Progression Other Impression: Thrombocytopenia improving Plan: Discharge Other Plans: repeat hemogram in am Procedures: None Progress Notes: Doing well. She is ready for D/C. Signing Physician: Daniela Contreras MD Copies: ~ *Electronically Signed* 08/28/20 0803 DANIELA CONTRERAS MD PATIENT NAME: MAX CASH PROGRESS NOTE DATE OF : 96 PHYSICIAN: DANIELA CONTRERAS MD RPT #: [id number] REPORT IS CONFIDENTIAL AND NOT TO BE RELEASED WITHOUT AUTHORIZATION
== END 2020-08-28 09:55 | disposition home or self-care (01) | DRG 806 ==
LOC: FBCO 14:03 → FBC 14:30
PROVIDERS: ADMIT Obstetrics & Gynecology; ATTEND Obstetrics & Gynecology
PROC: 10H07YZ Insertion of Other Device into Products of Conception, Via Natural or Artificial Opening (ICD-10-PCS; 2020-08-25)
PROC: 00HU33Z Insertion of Infusion Device into Spinal Canal, Percutaneous Approach (ICD-10-PCS; 2020-08-25)
PROC: 3E0R3BZ Introduction of Anesthetic Agent into Spinal Canal, Percutaneous Approach (ICD-10-PCS; 2020-08-25)
PROC: 10E0XZZ Delivery of Products of Conception, External Approach (ICD-10-PCS; principal; 2020-08-26)
PROC: 0UQGXZZ Repair Vagina, External Approach (ICD-10-PCS; 2020-08-26)
DX: O42.92 Full-term premature rupture of membranes, unspecified as to length of time between rupture and onset of labor (principal); O71.4 Obstetric high vaginal laceration alone; Z37.0 Single live birth; O99.12 Other diseases of the blood and blood-forming organs and certain disorders involving the immune mechanism complicating childbirth; Z3A.40 40 weeks gestation of pregnancy; O76 Abnormality in fetal heart rate and rhythm complicating labor and delivery; O99.214 Obesity complicating childbirth; E66.9 Obesity, unspecified; O26.03 Excessive weight gain in pregnancy, third trimester; O43.123 Velamentous insertion of umbilical cord, third trimester; D69.6 Thrombocytopenia, unspecified
CPT/HCPCS: 01960; 36415; 85027; J2001; J2590; J2795; J7121